=== PATIENT | female | born 1950 | race Caucasian/White ===

== ENCOUNTER 2021-04-12 17:35 | Observation (INO) ==
[2021-04-12 18:17] LABS: BILIRUBIN,URINE Negative (NEGATIVE); CLARITY,URINE Cloudy (CLEAR); COLOR,URINE Yellow (YELLOW); GLUCOSE, URINE (UA) Negative (NEGATIVE); KETONES,URINE Trace (NEGATIVE); LEUKOCYTE ESTERASE ,URINE 3+ (NEGATIVE); NITRITE,URINE Negative (NEGATIVE); PROTEIN,URINE 2+ (NEGATIVE); URINE, BLOOD 1+ (NEGATIVE); UROBILINOGEN,URINE 0.2 (0.2)
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
[2021-04-12 18:28] LABS: AMPHETAMINE SCREEN,URINE POSITIVE (NEGATIVE); BARBITURATE SCREEN,URINE NEGATIVE (NEGATIVE); BENZODIAZEPINES SCREEN,URINE POSITIVE (NEGATIVE); CANNABINOID SCREEN,URINE NEGATIVE (NEGATIVE); COCAIN SCREEN,URINE NEGATIVE (NEGATIVE); METHADONE URINE SCREEN NEGATIVE (NEGATIVE); METHAMPHETAMINES SCREEN,URINE NEGATIVE (NEGATIVE); OPIATE SCREEN,URINE NEGATIVE (NEGATIVE); OXYCODONE URINE SCREEN NEGATIVE (NEGATIVE); PHENCYCLIDINE SCREEN,URINE NEGATIVE (NEGATIVE); PROPOXYPHENE URINE SCREEN NEGATIVE (NEGATIVE); TRICYCLIC ANTIDEPRESSANTS URIN NEGATIVE (NEGATIVE)
[2021-04-12 18:35] LABS: BACTERIA,URINE 4+ (NOT PRESENT); RENAL EPITHELIAL CELLS,URINE 0-2 (NOT PRESENT); TRANSITIONAL EPI CELLS,URINE 0-2 (NOT PRESENT); URINE RBC, MICROSCOPIC 0-2 (0-2); URINE WBC, MICROSCOPIC TNTC (0-2)
[2021-04-12 19:03] LABS: BASOPHILS # (AUTO) 0.1 K/uL (0-0.2); BASOPHILS % (AUTO) 0.6 % (0.0-3.0); EOSINOPHILS # (AUTO) 0.2 K/ul (0.0-0.7); EOSINOPHILS % (AUTO) 1.8 % (0.0-7.0); HEMOGLOBIN 13.6 g/dl (12.0-16.0); IMMATURE GRANULOCYTE # (AUTO) 0.1 (0.0-1.0); IMMATURE GRANULOCYTE % (AUTO) 0.4 % (0.0-5.0); LYMPHOCYTES # (AUTO) 3.6 K/uL (0.60-3.4); LYMPHOCYTES % (AUTO) 28.7 (10.0-50.0); MEAN CORPUSCULAR HEMOGLOBIN 30.1 pg (27.0-31.0); MEAN CORPUSCULAR HGB CONC 34.9 (31.8-35.4); MEAN CORPUSCULAR VOLUME 86.3 fl (81.0-99.0); MONOCYTES # (AUTO) 1.2 K/uL (0.4-2.0); MONOCYTES % (AUTO) 9.5 (0-10); NEUTROPHILS # (AUTO) 7.4 K/ul (2.0-6.9); PLATELET COUNT 275 10^3/uL (140-440); RDW COEFFICIENT OF VARIATION 13.1 % (11.6-14.8); RED BLOOD COUNT 4.52 10^6/ul (4.20-5.40); WHITE BLOOD COUNT 12.53 K/ul (4.6-10.2)
[2021-04-12 19:16] LABS: ALANINE AMINOTRANSFERASE 36.7 U/L (0-35); ALBUMIN 4.2 g/dL (3.5-5.0); ALKALINE PHOSPHATASE 112.6 U/L (53-141); ASPARTATE AMINO TRANSFERASE 36.3 U/L (14-36); BILIRUBIN,TOTAL 0.43 mg/dL (0.2-1.3); BLOOD UREA NITROGEN 54.6 mg/dL (7-17); CALCIUM 9.74 mg/dL (8.4-10.2); CARBON DIOXIDE 27.9 mmol/L (22-30.0); CHLORIDE 94.6 mmol/L (98-107); CREATININE 2.77 mg/dL (0.60-1.30); GLUCOSE 107.8 mg/dL (74-106); SODIUM 131.9 mmol/L (134.5-145); TOTAL PROTEIN 6.72 g/dL (6.3-8.2)
[2021-04-12 19:17] LABS: POTASSIUM 2.66 mmol/L (3.5-5.1)
--- NOTE | 2021-04-12 19:17 | CT ---
EXAM: CT BRAIN HISTORY: Head trauma TECHNIQUE: CT brain without intravenous contrast. 5-mm axial sections with Reformations. COMPARISON: 07/23/2014 FINDINGS: There is a ventriculostomy tube entering from the anterior right aspect to end in the anterior horn o f the right lateral ventricle. Mild ventriculomegaly is stable. There is generalized atrophy and ch ronic microvascular ischemic disease. No intracranial hemorrhage or subdural hematoma. There is no evidence of recent large vessel distribution ischemic infarction, mass or midline shift. Basal ciste rns are patent. Atherosclerosis is noted. There is no skull fracture. Mastoid process air cells ar e aerated and the visualized paranasal sinuses are clear. IMPRESSION: No acute intracranial process or injury. No skull fracture. - - - - - All CT scans are performed using dose optimization techniques as appropriate to the performed exam an d include at least one of the following: Automated exposure control, adjustment of the mA and/or kV according t o size, and the use of iterative reconstruction technique.
--- NOTE | 2021-04-12 19:23 | CT ---
EXAM: CT cervical spine. HISTORY: Fall. TECHNIQUE: CT cervical spine without contrast. Detailed axial sections. Coronal and sagittal re-fo rmations. COMPARISON: None FINDINGS: Bones are demineralized. No fracture is identified. Vertebral body heights are maintained. Facet j oints are covered. The lateral masses of C1 and C2 are normally aligned and the odontoid process is intact. No scoliosis. Diffuse degenerative disc and facet disease becomes moderately severe at the mid to lower spine most apparent at C5/C6 where there is central canal stenosis and mild bilateral ne ural foraminal narrowing. There is subtle reversal of lordosis centered at C5. There is no paraspin al fluid collection or hematoma. Incidental findings include atherosclerotic disease. IMPRESSION: 1. Diffuse degenerative changes of the spine. No acute fracture identified - - - - - All CT scans are performed using dose optimization techniques as appropriate to the performed exam an d include at least one of the following: Automated exposure control, adjustment of the mA and/or kV according t o size, and the use of iterative reconstruction technique.
--- NOTE | 2021-04-12 19:27 | CT ---
EXAM: CT FACIAL BONES HISTORY: Fall. TECHNIQUE: CT facial bones without contrast. 3-mm axial sections. Coronal and sagital reformations . FINDINGS: No acute fracture is seen. The orbits are intact. Intraorbital structures are preserved. No mandib ular fracture. Temporal mandibular joints are intact. Paranasal sinuses are clear and the mastoid p rocess air cells aerated. IMPRESSION: No fractures identified. - - - - - All CT scans are performed using dose optimization techniques as appropriate to the performed exam an d include at least one of the following: Automated exposure control, adjustment of the mA and/or kV according t o size, and the use of iterative reconstruction technique.
[2021-04-12] MEDS ORDERED: SODIUM CHLORIDE 0.9%-KCL 40MEQ 1,000 ML IV STA (19:32)
[2021-04-12] MEDS ORDERED: TYLENOL PO PRN (19:37)
[2021-04-12] MEDS ORDERED: KLONOPIN PO PRN (19:39)
[2021-04-12] MEDS ORDERED: DEXTROSE IV ONE (19:59)
[2021-04-12] MEDS ORDERED: CIPROFLOXACIN 200 MG/100 ML IV ONE (19:59)
[2021-04-12] MEDS: CIPROFLOXACIN 200 MG/100 ML IV SCH (20:01)
[2021-04-12] MEDS: DEXTROSE IV SCH (20:01)
[2021-04-12 20:27] LABS: MOLECULAR FLU A NEGATIVE BY NAAT (NEGATIVE); MOLECULAR FLU B NEGATIVE BY NAAT (NEGATIVE)
--- NOTE | 2021-04-12 20:46 | DI ---
EXAM: Chest, single view HISTORY: Mental status changes COMPARISON: 08/11/2015 FINDINGS / IMPRESSION: Cardiomediastinal countours appear stable. Catheter tubing traverses the rig ht chest. There is no focal pulmonary consolidation. No pleural effusion or pneumothorax. No acute cardiopulmonary process.
[2021-04-12] MEDS ORDERED: DEXTROAMPHETAMINE AMPHETAMINE 20 MG PO SCH (21:00)
[2021-04-12 22:12] VITALS: BMI 26.6
[2021-04-13 05:36] LABS: BASOPHILS # (AUTO) 0.1 K/uL (0-0.2); BASOPHILS % (AUTO) 0.7 % (0.0-3.0); EOSINOPHILS # (AUTO) 0.3 K/ul (0.0-0.7); EOSINOPHILS % (AUTO) 2.7 % (0.0-7.0); HEMATOCRIT 35.8 % (37.0-47.0); HEMOGLOBIN 12.4 g/dl (12.0-16.0); IMMATURE GRANULOCYTE % (AUTO) 0.4 % (0.0-5.0); LYMPHOCYTES # (AUTO) 2.5 K/uL (0.60-3.4); LYMPHOCYTES % (AUTO) 25.6 (10.0-50.0); MEAN CORPUSCULAR HEMOGLOBIN 30.2 pg (27.0-31.0); MEAN CORPUSCULAR HGB CONC 34.6 (31.8-35.4); MEAN CORPUSCULAR VOLUME 87.1 fl (81.0-99.0); MONOCYTES # (AUTO) 0.8 K/uL (0.4-2.0); MONOCYTES % (AUTO) 8.2 (0-10); NEUTROPHILS # (AUTO) 6.2 K/ul (2.0-6.9); NEUTROPHILS % (AUTO) 62.4 % (42.2-75.2); PLATELET COUNT 226 10^3/uL (140-440); RDW COEFFICIENT OF VARIATION 13.2 % (11.6-14.8); RED BLOOD COUNT 4.11 10^6/ul (4.20-5.40); WHITE BLOOD COUNT 9.87 K/ul (4.6-10.2)
[2021-04-13 05:49] LABS: ALANINE AMINOTRANSFERASE 31.4 U/L (0-35); ALBUMIN 3.72 g/dL (3.5-5.0); ALKALINE PHOSPHATASE 94.4 U/L (53-141); ASPARTATE AMINO TRANSFERASE 30.3 U/L (14-36); BILIRUBIN,TOTAL 0.39 mg/dL (0.2-1.3); BLOOD UREA NITROGEN 54.3 mg/dL (7-17); CALCIUM 9.39 mg/dL (8.4-10.2); CARBON DIOXIDE 24.7 mmol/L (22-30.0); CHLORIDE 102.6 mmol/L (98-107); CREATININE 1.85 mg/dL (0.60-1.30); GLUCOSE 103.2 mg/dL (74-106); POTASSIUM 2.89 mmol/L (3.5-5.1); SODIUM 135.9 mmol/L (134.5-145); TOTAL PROTEIN 6.13 g/dL (6.3-8.2)
[2021-04-13] MEDS ORDERED: ZOFRAN 4 MG/2 ML IVP STA (06:29)
[2021-04-13] MEDS ORDERED: K-DUR PO STA (06:29)
[2021-04-13] MEDS: CIPROFLOXACIN 200 MG/100 ML IV SCH (08:48)
[2021-04-13] MEDS: DEXTROSE IV SCH (08:48)
[2021-04-13] MEDS ORDERED: TOPROL XL PO SCH (09:00)
[2021-04-13] MEDS ORDERED: BUPROPION HCL 100 MG PO SCH (09:00)
[2021-04-13] MEDS ORDERED: DIOVAN PO SCH (09:00)
[2021-04-13] MEDS ORDERED: LIPITOR PO SCH ×2 (09:00→10:30)
[2021-04-13] MEDS ORDERED: ADDERALL PO SCH (09:00)
[2021-04-13] MEDS ORDERED: DORZOLAMIDE TIMOLOL OP SCH (09:45)
[2021-04-13] MEDS ORDERED: LEXAPRO PO SCH (10:00)
[2021-04-13] MEDS ORDERED: BRIMONIDINE TARTRATE 0.2% OPTH SOL EACHEYE SCH ×3 (10:00→10:30)
[2021-04-13] MEDS ORDERED: XALATAN EACHEYE SCH (10:00)
[2021-04-13 10:01] LABS: BLOOD UREA NITROGEN 48.5 mg/dL (7-17); CALCIUM 9.7 mg/dL (8.4-10.2); CARBON DIOXIDE 25.7 mmol/L (22-30.0); CHLORIDE 102.1 mmol/L (98-107); CREATININE 1.67 mg/dL (0.60-1.30); GLUCOSE 93.4 mg/dL (74-106); POTASSIUM 3.33 mmol/L (3.5-5.1)
[2021-04-13] MEDS ORDERED: COSOPT EACHEYE SCH ×2 (10:30)
[2021-04-13] MEDS ORDERED: PRILOSEC PO SCH (10:30)
[2021-04-13] MEDS ORDERED: DEXTROSE IV ONE (11:00)
[2021-04-13] MEDS ORDERED: CIPROFLOXACIN 200 MG/100 ML IV ONE (11:00)
[2021-04-13] MEDS ORDERED: INFUVITE ADULT IV SCH (13:00)
[2021-04-13] MEDS ORDERED: POTASSIUM CHLORIDE IV SCH (13:00)
[2021-04-13] MEDS ORDERED: ADDITIVE ONLY IV SCH (13:00)
[2021-04-13] MEDS ORDERED: [UNRECOGNIZED DRUG - OTHER] IV SCH (13:00)
[2021-04-13 14:13] VITALS: BP 160/68; TEMP 97.8
--- NOTE | 2021-04-13 14:55 | RS.SLPCNOT ---
Speech Case Note Date of Note: 04/13/21 Title: Speech Consult Note: [employer]ACLE SO[employer] DEVELOPER was consulted regarding pt's AMS and cognitive change. [employer]LE SO[employer] DEVELOPER reviewed chart and RN had documented pt was angry and wanted to leave building. OR[employer]LE [employer] DEVELOPER verbally discussed with MD potential for participation with cognitive assessment and pt's current state of mind. MD suggested OR[employer]LE [employer] DEVELOPER hold cognitive assessment as pt's cooperation was limited. OR[employer]LE SO[employer] DEVELOPER agreed with MD's recommendations. No formal cognitive evaluation, assessment or screen was completed this date.
[2021-04-13] MEDS ORDERED: DESYREL PO PRN (21:00)
[2021-04-13] MEDS ORDERED: CIPROFLOXACIN 200 MG/100 ML IV SCH (21:00)
[2021-04-13] MEDS ORDERED: CIPRO 400 MG/200 ML D5W 400 MG/200 ML BAG IV SCH (21:00)
[2021-04-13] MEDS ORDERED: DEXTROSE IV SCH (21:00)
[2021-04-14] MEDS ORDERED: LIPITOR PO SCH (09:00)
[2021-04-14] MEDS ORDERED: TOPROL XL PO SCH ×2 (09:00)
[2021-04-14] MEDS ORDERED: ADDERALL PO SCH (09:00)
--- NOTE | 2021-04-14 11:15 | SSS ---
DATE OF SERVICE: 04/12/21 CHIEF COMPLAINT: Neck pain after a fall on ice. SOURCE OF HISTORY: The patient and notes from the emergency room doctor. Reliability unsure about. HISTORY OF PRESENT ILLNESS: The patient claimed that yesterday she fell and slid on ice and landed on her forehead. She went to the emergency room with her daughter but left without being seen since they had waited for a long time. She did not specified as to how many hours they were there without being seen. She was picked up by Mike from [facility] and I saw her at 1 before going to the emergency room and was complaining of neck pain. I did advise her to go to the emergency room because of the pain as well as the injury which was evaluated in [place]. She was brought to [place] [facility] and a workup was performed and Dr. Carver was advised about the patient in the emergency room by Dr. Carver refused her admission to his services since he had seen her for more than [address] Jasso, the emergency room doctor at that time. He soon talked to me with her and I did informed Dr. Jasso that she can admit her to my services in the mean time. This patient was constantly telling me her ride on the airplane was terrible. Asked her whether it was because of the weather and she did not answer that. The patient was found to have prerenal azotemia or NIVIA with an EGFR of 19. The patient was subsequently admitted for treatment of the urinary tract infection as well as the dehydration-prerenal azotemia or NIVIA. PAST MEDICAL HISTORY/PAST SURGICAL HISTORY: The patient had tubal ligation Hysterectomy Ventricular peritoneal shunt probably from hydrocephalus History of hypertension Chest pain in the past ADD MEDICATIONS: Lipitor 40mg daily Brimonidine 0.2% one drop every 12 hours both eyes. Dextroamphetamine 20mg twice a day (Adderall) Dorzolamide (Timolol) one drop both eyes every 12 hours Lexapro 10mg daily Latanoprost 0.005% 150mg at HS PRN Ascorbic acid 500mg daily discontinued Ibuprofen Hydrochloride 150mg daily discontinued Vitamin D 3 400 international units discontinued Clonazepam 0.5mg twice a day discontinued Colchicine discontinued Fluticasone 50mcg per actuation discontinued Losartan Hydrochloride 100mg/25mg discontinued Pantoprazole 20mg daily discontinued Tretinoin 0.025% topical application discontinued Valsartan 320mg daily discontinued The discontinued medications are medications that had not been filled at the pharmacy. The medications that the pharmacist had filled were done 03/22/21. ALLERGIES: Penicillins Sulfa REVIEW OF SYSTEMS: CONSTITUTIONAL: The patient claims to have weakness. No fever and chills. She also claimed to have lost some 32 pounds. Did ask her this morning and she claimed that she gained it back. HEENT: This patient has Glaucoma, on medication. No symptoms otherwise. Nose and Throat negative. CARDIOVASCULAR: Denies any chest pain or shortness of breath or tightness in the chest. RESPIRATORY: No dyspnea or tachypnea or other problems. GASTROINTESTINAL: No nausea and no anorexia with good appetite. GENITOURINARY: Denies any pain on urination. MUSCULOSKELETAL: The patient is complaining of pain in the neck NEUROLOGIC: Reports forgetfulness. Gait is not steady but maybe from the generalized weakness. SKIN: The patient does complain of laceration on the right forehead from the fall yesterday. ENDOCRINE: Negative. HEMATOLOGIC: Denies any spontaneous bleeding or any bleeding without any reason. PHYSICAL EXAMINATION: GENERAL: 70 year old female , alert but rambling. The patient seems to be repeatedly saying that no body is helping her. She also mentioned about the rough ride on the airplane from [place] to [place]. Workup done at the emergency room showed no acute fractures of the skull or cervical spine. She was noted to have dehydration with elevated BUN, elevated creatinine and low EGFR. EGFR of this patient back in 2016 was 75. She has movement of all extremities. She does have a laceration on the right forehead slightly gapping. VITAL SIGNS: Temperature 97.8, blood pressure 113/71, pulse 74, respiratory rate 18 and oxygen saturation 98% at room air. HEAD: Unremarkable. FACE: Symmetrical and equal with no facial weakness. Slightly gapping laceration to right forehead slanted direction about an inch or slightly longer. There are steri strips applied. EYES: Pupils are about 3mm in size equal and reactive. EAR: No external bloody drainage. NECK: No masses and bruit. No rigidity. The patient complains of some soreness in the neck. CHEST: Symmetrical and equal. This patient had a previous breast augmentation that was removed. BREAST: No examined today HEART: Audible and regular with good tones. LUNGS: Clear to auscultation in both sides. ABDOMEN: Slightly protuberant and soft with no tenderness. No masses. No bruit LOWER EXTREMITIES: No edema. Anterior and posterior tibial pulses are present in both right and left feet. Motor function is symmetrical and equal. UPPER EXTREMITIES: Symmetrical and equal with good motor function. ASSESSMENT: 1. Laceration right forehead, not sutured 2. Pain posterior neck area, no fracture by CT scan 3. Rambling speech or thoughts 4. History of hypertension 5. History of ADD 6. History of previous hospitalization diagnosis unknown to me The patient after the fall presented to the emergency room at [facility] with her daughter Lesly and they left after waiting for three hours without being seen according to Lesly. COURSE IN THE HOSPITAL: The patient's vital signs remained stable. Blood pressures have risen somewhat and at 2:00 in the afternoon 04/13/21 following vital signs are 97.8 temperature, blood pressure 160/68, pulse 78, respiratory rate 16, oxygen saturation 97% at room air. The patient had been getting up and moving around the room and also to the hallway since 7:00. She reportedly had a good breakfast. The patient was hyper and seemingly agitated and wanted to get out of the hospital. She told the nurse that it was an elderly abuse to keep her in the hospital and that I am not her doctor. Dr. Carver was contacted for admission and declined since he had seen this patient for more than 5 years. I did explain that to her that Dr. Carver declined admission to his services. All she wanted to tell me is that she wants to go home. I told her that she could not go home until her daughter will come and pick her up since no body is going to drive her to her house. The patient at the time of my examination for discharge is alert, cooperative and did recognize me and all she could tell me that she wants to go home. She appears to be agitated, anxious with some tremor movement both upper extremities. She does know where she is and also knows who her daughter is. HEAD: The laceration on the forehead has steri strips and no signs of any infection. No redness and no edema surrounding. EYES: Pupils are equal and reactive. FACE: Symmetrical and equal with no facial weakness. NECK: No pain. No significant tenderness. No bruit. The patient denies any pain now in the neck. HEART: Normal sinus rhythm LUNGS: Clear to auscultation ABDOMEN: unremarkable LOWER EXTREMITIES: Symmetrical and equal and no edema. She has good movement of both upper and lower extremities. I did inform her that she has some bladder infection that she will be given a prescription. There is some side effects of this medication, some are very rare but very significant such as a vascular complication, rupture of blood vessel. She should drink plenty of liquids via water any form of liquids but no alcohol. Her kidneys had improved since admission yesterday. She is allergic to Penicillin and Sulfa and so she was given Cipro as an alternative. At this time we do not have the identification or the ESTEBAN of the urine abnormalities. She is to resume all her previous medications that she had from [place] plus the medication that is being prescribed today, Cipro 500mg #10 one twice a day with no refills. She as well as the daughter is advised that she should see a doctor as soon as possible. If she would have any problems that she should seek medical attention. I had to Lesly, her daughter, who is picking her up. ASSESSMENT: 1. Right forehead laceration, not sutured secondary to fall on ice 2. Neck pain resolved 3. Rambling thoughts (confusion) 4. History of ADD 5. History of hydrocephalus treated with a shunt 6. History of Glaucoma on medication 7. History of hypertension, controlled PROGNOSIS: Guarded MTDD
== END 2021-04-13 15:40 | disposition other institution (70) ==
LOC: ED 17:35 → INTOOBSV 21:04 → MEDSURG A 21:04
PROVIDERS: ADMIT General Practice; ATTEND General Practice
DX: Z91.81 History of falling; N39.0 Urinary tract infection, site not specified; E86.0 Dehydration; R51.9 Headache, unspecified; S09.90XA Unspecified injury of head, initial encounter; Y99.9 Unspecified external cause status; S01.81XA Laceration without foreign body of other part of head, initial encounter; E87.6 Hypokalemia; M54.2 Cervicalgia; Z79.899 Other long term (current) drug therapy; Y92.9 Unspecified place or not applicable; R53.1 Weakness; R41.82 Altered mental status, unspecified; Y93.9 Activity, unspecified; W00.9XXA Unspecified fall due to ice and snow, initial encounter; N17.9 Acute kidney failure, unspecified; N18.4 Chronic kidney disease, stage 4 (severe)

== ENCOUNTER 2021-10-08 18:05 | Inpatient (IN) ==
--- NOTE | 2021-10-08 18:33 | ED.PDOC ---
General ED Provider: Dr. JUAN CERVANTES Chief Complaint: Behavioral Complaint Stated Complaint: im here to meet mental health Time Seen by Provider: 10/08/21 18:28 Mode of Arrival: Walk-In Information Source: Patient Exam Limitations: No limitations Primary Care Provider: UNKNOWN PROVIDER Nursing and Triage Documentation Reviewed and Agree: Yes Does patient meet sepsis criteria?: No System Inflammatory Response Syndrome: Not Applicable Sepsis Protocol: For patient's 13 years and over: Temp is 96.8 and below OR 101 and greater Pulse >90 BPM Resp >20/minute Acutely Altered Mental Status Are patient's symptoms suggestive of a new infection, such as: -Pneumonia -Skin, Soft Tissue -Endocarditis -UTI -Bone, Joint Infection -Implantable Device -Acute Abdominal Infection -Wound Infection -Meningitis -Blood Stream Catheter Infection -Unknown Psychological Complaint Exam Psychiatric Complaint/Exam Patient Complains Of: Present Depression Onset/Duration: several weeks Symptoms Are: Still present Timing: Constant Initial Severity: Mild Current Severity: Mild Character: Present Manic, Fearful and Anxious Associated Signs And Symptoms: Reports Paranoid behavior Completed Suicide Risk Factors: Age > 60 and Patient In Custody Of Police: No Social Withdrawal Present: No Social Isolation Present: Yes Related Surgical History: Reports None Patient Uncooperative For Exam: No Mood: Present Paranoid Appearance: Present Clean Thought Process: Present Flight of ideas Insight: Present Poor Memory: Intact Judgement: Impaired Danger To Others: No Patient Medically Stable For: Psych evaluation, Referral and Transfer Differential Diagnoses: Bipolar Disorder and Acute Psychosis Review of Systems Review Of Systems Constitutional: Reports No symptoms Eyes: Reports No symptoms Ears, Nose, Mouth, Throat: Reports No symptoms Respiratory: Reports No symptoms Cardiac: Reports No symptoms GI: Reports No symptoms : Reports No symptoms Musculoskeletal: Reports No symptoms Skin: Reports No symptoms Neurological: Reports No symptoms Endocrine: Reports No symptoms Hematologic/Lymphatic: Reports No symptoms All Other Systems: Reviewed and Negative PFSH Medical History ADD (attention deficit disorder) Glaucoma Hydrocephalus Family History FATHER Suicide Mother Hodgkin disease Social History History of recent travel: No Surgical History H/O tubal ligation History of abdominoplasty Hx of cholecystectomy Ventriculo-peritoneal shunt status Female Reproductive History Menstrual Hx Hysterectomy: No Hx Tubal Ligation: No Physical Exam Physical Exam Appearance: Reports Well-appearing Ill-appearing: None Pain Distress: None Eyes: Reports RIVKA, EOMI and Conjunctiva clear ENT: Reports Ears normal, Nose normal and Oropharynx normal Neck: Supple Respiratory: Reports Airway patent and Breath sounds clear Cardiovascular: Reports RRR, Pulses normal and No rub GI/: Reports Soft, Nontender and No masses Musculoskeletal: Reports Normal strength, ROM intact and No edema Skin: Reports Warm, Dry and Normal color Neurological: Reports Sensation intact, Motor intact, Reflexes intact, Cranial nerves intact, Alert and Oriented Psychiatric: Reports Affect appropriate and Mood appropriate Interpretation EKG Interpretation Time of EKG #1: 19:54 Rate: Normal Rhythm: Sinus Ectopy: None [place]: NL ST Segment: Normal Interpretation: nsr Physician Notification Case Discussed Physician Notified: dr delvalle Time of Notification: 19:00 Critical Care Note Critical Care Note Total Critical Care Time (mins): 0 Course Course Hematology/Chemistry: 10/08/21 18:32 10/08/21 18:32 Orders, Labs, Meds: Lab Review 10/08/21 10/08/21 10/08/21 18:32 18:32 18:32 WBC 12.43 H RBC 4.69 Hgb 13.9 Hct 39.6 MCV 84.4 MCH 29.6 MCHC 35.1 RDW Coeff of Jose 12.8 Plt Count 273 Immature Gran % (Auto) 0.3 Neut % (Auto) 69.6 Lymph % (Auto) 19.1 [place] % (Auto) 10.0 Eos % (Auto) 0.6 Baso % (Auto) 0.4 Neut # (Auto) 8.7 H Lymph # (Auto) 2.4 [place] # (Auto) 1.2 Eos # (Auto) 0.1 Baso # (Auto) 0.1 Immature Gran # (Auto) 0.0 Sodium 134.6 Potassium 1.93 L* Chloride 98.4 Carbon Dioxide 22.6 Anion Gap 15.53 BUN 15.2 Creatinine 0.95 Estimated GFR (MDRD) 58.00 BUN/Creatinine Ratio 16.00 Glucose 124.2 H Calcium 9.86 Magnesium 1.90 Total Bilirubin 0.46 AST 35.3 ALT 30.7 Alkaline Phosphatase 117.1 Total Protein 7.02 Albumin 4.17 Globulin 2.85 Albumin/Globulin Ratio 1.46 Urine Color Urine Clarity Urine pH Ur Specific [place] Urine Protein Urine Glucose (UA) Urine Ketones Urine Blood Urine Nitrite Urine Bilirubin Urine Urobilinogen Ur Leukocyte Esterase Urine Microscopic RBC Urine Microscopic WBC Ur Squamous Epith Cells Urine Bacteria Salicylate Level mg/dL < 1.00 Urine Opiates Screen Ur Oxycodone Screen Urine Methadone Screen Ur Propoxyphene Screen Acetaminophen < 10.0 L Ur Barbiturates Screen U Tricyclic Antidepress Ur Phencyclidine Scrn Ur Amphetamine Screen U Methamphetamines Scrn U Benzodiazepines Scrn Urine Cocaine Screen U Cannabinoids Screen Plasma/Serum Alcohol < 10.0 10/08/21 10/08/21 19:00 19:00 WBC RBC Hgb Hct MCV MCH MCHC RDW Coeff of Jose Plt Count Immature Gran % (Auto) Neut % (Auto) Lymph % (Auto) [place] % (Auto) Eos % (Auto) Baso % (Auto) Neut # (Auto) Lymph # (Auto) [place] # (Auto) Eos # (Auto) Baso # (Auto) Immature Gran # (Auto) Sodium Potassium Chloride Carbon Dioxide Anion Gap BUN Creatinine Estimated GFR (MDRD) BUN/Creatinine Ratio Glucose Calcium Magnesium Total Bilirubin AST ALT Alkaline Phosphatase Total Protein Albumin Globulin Albumin/Globulin Ratio Urine Color Yellow Urine Clarity Clear Urine pH 7.0 Ur Specific [place] 1.015 Urine Protein Negative Urine Glucose (UA) Negative Urine Ketones Negative Urine Blood Negative Urine Nitrite Negative Urine Bilirubin Negative Urine Urobilinogen 0.2 Ur Leukocyte Esterase 1+ H Urine Microscopic RBC 0-2 Urine Microscopic WBC 10-20 Ur Squamous Epith Cells 2-5 Urine Bacteria Trace Salicylate Level mg/dL Urine Opiates Screen Negative Ur Oxycodone Screen Negative Urine Methadone Screen Negative Ur Propoxyphene Screen Negative Acetaminophen Ur Barbiturates Screen Negative U Tricyclic Antidepress Negative Ur Phencyclidine Scrn Negative Ur Amphetamine Screen Negative U Methamphetamines Scrn Negative U Benzodiazepines Scrn Negative Urine Cocaine Screen Negative U Cannabinoids Screen Negative Plasma/Serum Alcohol Orders Category Date Time Status EKG-(ED ONLY) Stat CARDIO 10/08/21 18:20 Completed ED IV/MEDIPORT/POWERPORT .ONCE EMERGENCY 10/08/21 19:02 Active Mental Health Consult [ED MENTAL HEALTH CONSULT] .ONCE EMERGENCY 10/08/21 18:23 Active ASPIRIN LEVEL [SALICYLATE] Stat LAB 10/08/21 18:32 Completed CBC W/ AUTO DIFF Stat LAB 10/08/21 18:32 Completed COMPREHENSIVE METABOLIC PANEL Stat LAB 10/08/21 18:32 Completed ETOH LEVEL [BLOOD ALCOHOL] Stat LAB 10/08/21 18:32 Completed MAGNESIUM Stat LAB 10/08/21 18:32 Completed TYLENOL LEVEL [ACETAMINOPHEN] Stat LAB 10/08/21 18:32 Completed URINALYSIS C & S IF INDICATED Stat LAB 10/08/21 19:00 Completed URINE CULTURE Stat LAB 10/08/21 19:00 Received URINE DRUG SCREEN (RAPID FOR ED) [DRUG SCREEN, URINE, LAB 10/08/21 19:00 Completed RAPID] Stat 0.9 % Sodium Chloride [Saline Flush] MEDS 10/08/21 19:02 Active 1 syr IVF PRN PRN Lorazepam [Ativan] MEDS 10/08/21 18:49 Discontinued 1 mg IVP ONCE STA Potassium Chloride [Potassium Chloride 10 Meq/100 ml MEDS 10/08/21 19:02 Discontinued Premix] 10 meq in 100 ml IV ONCE Potassium Chloride [Potassium Chloride 10 Meq/100 ml MEDS 10/08/21 19:02 Discontinued Premix] 10 meq in 100 ml IV ONCE Potassium Chloride [Potassium Chloride 10 Meq/100 ml MEDS 10/08/21 19:02 Discontinued Premix] 10 meq in 100 ml IV ONCE Medications Generic Name Dose Route Start Last Admin Trade Name Freq PRN Reason Stop Dose Admin Sodium Chloride 1 syr 10/08/21 19:02 0.9% Sodium Chloride 10 Ml Disp.Syrin IVF PRN PRN To flush IV Discontinued Medications Generic Name Dose Route Start Last Admin Trade Name Freq PRN Reason Stop Dose Admin Potassium Chloride 10 meq in 100 mls @ 100 mls/hr 10/08/21 19:02 10/08/21 19:12 Potassium Chloride 10 Meq/100 Ml Premix IV 10/08/21 20:01 100 mls/hr ONCE STA Administration Potassium Chloride 10 meq in 100 mls @ 100 mls/hr 10/08/21 19:02 10/08/21 20:45 Potassium Chloride 10 Meq/100 Ml Premix IV 10/08/21 20:01 100 mls/hr ONCE STA Administration Potassium Chloride 10 meq in 100 mls @ 100 mls/hr 10/08/21 19:02 Potassium Chloride 10 Meq/100 Ml Premix IV 10/08/21 20:01 ONCE STA Lorazepam 1 mg 10/08/21 18:49 10/08/21 19:12 Lorazepam Inj 2 Mg/Ml Vial IVP 10/08/21 18:50 1 mg ONCE STA Administration Vital Signs: Temp Pulse Resp BP Pulse Ox 10/08/21 18:06 97.5 F L 85 18 141/40 H 96 Discharge Plan Discharge Patient Disposition: PLACED OBSERVATION Discharge Problem: Acute hypokalemia Prescriptions: No Action metoprolol succinate 100 MG tablet extended release 24 hr 12.5 mg PO DAILY atorvastatin [Lipitor] 10 MG tablet 40 tab PO DAILY latanoprost [Xalatan] 0.005 % Drops 1 drp BOTHEYES DAILY trazodone 50 mg Tablet 50 - 150 mg PO QHS PRN (Reason: Insomnia) brimonidine [Alphagan] 0.2 % Drops 1 drp BOTHEYES Q12H dorzolamide-timolol [Cosopt] 22.3-6.8 mg/mL Drops 1 drp BOTHEYES Q12H escitalopram oxalate [Lexapro] 10 mg Tablet 10 mg PO DAILY brimonidine 0.2 % Drops 1 drp BOTHEYES Q8H omeprazole 20 mg Tablet,Delayed Release (Dr/Ec) 20 mg PO DAILY potassium chloride 10 mEq capsule, extended release 10 meq PO DAILY Qty: 7 0RF ziprasidone HCl [Geodon] 20 mg capsule 20 mg PO BID MDD 2 Qty: 20 2RF Rx Instructions: give with food (meal/snack) dextroamphetamine-amphetamine [Adderall] 20 MG tablet 10 mg PO BID Did you review [place] CASTING CARRIER?: Not Applicable ED Provider: JUAN DELEON Condition: Good Physician Progress Note: []
[2021-10-08 18:36] LABS: BASOPHILS # (AUTO) 0.1 K/uL (0-0.2); BASOPHILS % (AUTO) 0.4 % (0.0-3.0); EOSINOPHILS # (AUTO) 0.1 K/ul (0.0-0.7); EOSINOPHILS % (AUTO) 0.6 % (0.0-7.0); HEMATOCRIT 39.6 % (37.0-47.0); HEMOGLOBIN 13.9 g/dl (12.0-16.0); IMMATURE GRANULOCYTE % (AUTO) 0.3 % (0.0-5.0); LYMPHOCYTES # (AUTO) 2.4 K/uL (0.60-3.4); LYMPHOCYTES % (AUTO) 19.1 (10.0-50.0); MEAN CORPUSCULAR HEMOGLOBIN 29.6 pg (27.0-31.0); MEAN CORPUSCULAR HGB CONC 35.1 (31.8-35.4); MEAN CORPUSCULAR VOLUME 84.4 fl (81.0-99.0); MONOCYTES # (AUTO) 1.2 K/uL (0.4-2.0); NEUTROPHILS # (AUTO) 8.7 K/ul (2.0-6.9); NEUTROPHILS % (AUTO) 69.6 % (42.2-75.2); PLATELET COUNT 273 10^3/uL (140-440); RDW COEFFICIENT OF VARIATION 12.8 % (11.6-14.8); RED BLOOD COUNT 4.69 10^6/ul (4.20-5.40); WHITE BLOOD COUNT 12.43 K/ul (4.6-10.2)
[2021-10-08] MEDS ORDERED: ATIVAN IVP STA (18:49)
[2021-10-08 18:57] LABS: ACETAMINOPHEN < 10.0 ug/ml (10-30); BLOOD ALCOHOL < 10.0 mg/dL (0.0-50.0); SALICYLATE < 1.00 mg/dL (0-20.0)
[2021-10-08 18:58] LABS: ALANINE AMINOTRANSFERASE 30.7 U/L (0-35); ALBUMIN 4.17 g/dL (3.5-5.0); ALKALINE PHOSPHATASE 117.1 U/L (53-141); ASPARTATE AMINO TRANSFERASE 35.3 U/L (14-36); BILIRUBIN,TOTAL 0.46 mg/dL (0.2-1.3); BLOOD UREA NITROGEN 15.2 mg/dL (7-17); CALCIUM 9.86 mg/dL (8.4-10.2); CARBON DIOXIDE 22.6 mmol/L (22-30.0); CHLORIDE 98.4 mmol/L (98-107); CREATININE 0.95 mg/dL (0.60-1.30); GLUCOSE 124.2 mg/dL (74-106); SODIUM 134.6 mmol/L (134.5-145); TOTAL PROTEIN 7.02 g/dL (6.3-8.2)
[2021-10-08 19:01] LABS: POTASSIUM 1.93 mmol/L (3.5-5.1)
[2021-10-08] MEDS ORDERED: POTASSIUM CHLORIDE 10 MEQ/100 ML PREMIX 10 MEQ/100 ML BAG IV STA ×5 (19:02→20:51)
[2021-10-08 19:06] LABS: BILIRUBIN,URINE Negative (NEGATIVE); CLARITY,URINE Clear (CLEAR); COLOR,URINE Yellow (YELLOW); GLUCOSE, URINE (UA) Negative (NEGATIVE); KETONES,URINE Negative (NEGATIVE); LEUKOCYTE ESTERASE ,URINE 1+ (NEGATIVE); NITRITE,URINE Negative (NEGATIVE); PROTEIN,URINE Negative (NEGATIVE); URINE, BLOOD Negative (NEGATIVE); UROBILINOGEN,URINE 0.2 (0.2)
[2021-10-08 19:13] LABS: BACTERIA,URINE TRACE (NOT PRESENT); URINE RBC, MICROSCOPIC 0-2 (0-2)
[2021-10-08 19:14] LABS: AMPHETAMINE SCREEN,URINE NEGATIVE (NEGATIVE); BARBITURATE SCREEN,URINE NEGATIVE (NEGATIVE); BENZODIAZEPINES SCREEN,URINE NEGATIVE (NEGATIVE); CANNABINOID SCREEN,URINE NEGATIVE (NEGATIVE); COCAIN SCREEN,URINE NEGATIVE (NEGATIVE); METHADONE URINE SCREEN NEGATIVE (NEGATIVE); METHAMPHETAMINES SCREEN,URINE NEGATIVE (NEGATIVE); OPIATE SCREEN,URINE NEGATIVE (NEGATIVE); OXYCODONE URINE SCREEN NEGATIVE (NEGATIVE); PHENCYCLIDINE SCREEN,URINE NEGATIVE (NEGATIVE); PROPOXYPHENE URINE SCREEN NEGATIVE (NEGATIVE); TRICYCLIC ANTIDEPRESSANTS URIN NEGATIVE (NEGATIVE)
[2021-10-08 19:15] LABS: MAGNESIUM 1.9 mg/dL (1.6-2.3)
[2021-10-08 22:49] VITALS: BMI 25.6
[2021-10-09] MEDS ORDERED: POTASSIUM CHLORIDE 10 MEQ/100 ML PREMIX 10 MEQ/100 ML BAG IV ONE ×2 (00:30→01:30)
[2021-10-09] MEDS: BRIMONIDINE TARTRATE 0.2% OPTH SOL EACHEYE SCH ×3 (00:48→23:42)
[2021-10-09] MEDS: COSOPT EACHEYE SCH ×3 (00:48→23:43)
[2021-10-09 05:11] LABS: BASOPHILS % (AUTO) 0.5 % (0.0-3.0); EOSINOPHILS # (AUTO) 0.1 K/ul (0.0-0.7); EOSINOPHILS % (AUTO) 1.6 % (0.0-7.0); HEMATOCRIT 35.1 % (37.0-47.0); IMMATURE GRANULOCYTE % (AUTO) 0.4 % (0.0-5.0); LYMPHOCYTES # (AUTO) 2.3 K/uL (0.60-3.4); LYMPHOCYTES % (AUTO) 28.9 (10.0-50.0); MEAN CORPUSCULAR HEMOGLOBIN 29.6 pg (27.0-31.0); MEAN CORPUSCULAR HGB CONC 34.2 (31.8-35.4); MEAN CORPUSCULAR VOLUME 86.7 fl (81.0-99.0); MONOCYTES # (AUTO) 0.8 K/uL (0.4-2.0); NEUTROPHILS # (AUTO) 4.7 K/ul (2.0-6.9); NEUTROPHILS % (AUTO) 58.6 % (42.2-75.2); PLATELET COUNT 211 10^3/uL (140-440); RED BLOOD COUNT 4.05 10^6/ul (4.20-5.40); WHITE BLOOD COUNT 8.04 K/ul (4.6-10.2)
[2021-10-09 05:22] LABS: ALANINE AMINOTRANSFERASE 26.5 U/L (0-35); ALBUMIN 3.33 g/dL (3.5-5.0); ALKALINE PHOSPHATASE 88.9 U/L (53-141); ASPARTATE AMINO TRANSFERASE 28.7 U/L (14-36); BILIRUBIN,TOTAL 0.47 mg/dL (0.2-1.3); BLOOD UREA NITROGEN 10.7 mg/dL (7-17); CALCIUM 8.78 mg/dL (8.4-10.2); CARBON DIOXIDE 24.4 mmol/L (22-30.0); CHLORIDE 99.4 mmol/L (98-107); CREATININE 0.78 mg/dL (0.60-1.30); GLUCOSE 134.9 mg/dL (74-106); TOTAL PROTEIN 5.8 g/dL (6.3-8.2)
[2021-10-09 05:27] LABS: POTASSIUM 1.85 mmol/L (3.5-5.1)
[2021-10-09] MEDS ORDERED: POTASSIUM CHLORIDE 20 MEQ/100 ML PREMIX 20 MEQ/100 ML BAG IV STA (05:38)
[2021-10-09] MEDS: DEXTROAMPHETAMINE AMPHETAMINE 20 MG PO SCH ×2 (07:26→08:37)
[2021-10-09] MEDS ORDERED: K-DUR PO ONE ×2 (08:00→12:24)
[2021-10-09] MEDS: LEXAPRO PO SCH (08:34)
[2021-10-09] MEDS: XALATAN EACHEYE SCH (08:37)
[2021-10-09] MEDS ORDERED: GEODON PO SCH (09:00)
[2021-10-09] MEDS ORDERED: PRILOSEC PO SCH (09:00)
[2021-10-09] MEDS ORDERED: TOPROL XL PO SCH (09:00)
[2021-10-09] MEDS ORDERED: LIPITOR PO SCH (09:00)
[2021-10-09] MEDS ORDERED: ATIVAN PO ONE (09:09)
--- NOTE | 2021-10-09 11:17 | PCM.PROG ---
Date Seen by Provider: 10/09/21 Time Seen by Provider: 11:14 Subjective: pt low potassium, hx anxiety, dni, improved with ativan, denies alcoholic hx Objective: Vitals: T=97.8 F, P=72, R=16, IS=724/79, SPO2=96 HEENT: []conjunctiva clear Neck: []supple Lungs: [] no respiratory distress CVS: []RRR Abdomen: []nondistended Extremities: []warm and dry Neurological: []alert and oriented Skin: []pink Lab/Tests/Diagnostic Imaging: [] K+ 1.85 Plan: will repeat K+ after iv and oral replacement care to Dr Kwok at 19:00
[2021-10-09] MEDS ORDERED: ATIVAN IVP ONE (12:24)
--- NOTE | 2021-10-09 15:22 | PCM ---
Chief Complaint Chief Complaint: im weak History of Present Illness History of Present Illness: This is a 71 yr old lady who presented to the er with weakness and diarrhea and was to be eval by mental heatlh for issues surrounding depression and anxiety. She denies being suicidal and was cleared for outpatient tx by mental health(see consult). however she has had some nonbloody diarrhea and was found to have low potassium and admitted for iv repletion of potasssium. Review of Systems Constitutional: Reports Weakness Eyes: Reports No symptoms Ears: Reports No symptoms Nose: Reports No symptoms Throat: Reports No symptoms Mouth: Reports No symptoms Respiratory: Reports No symptoms Cardiovascular: Reports No symptoms Gastrointestinal: Reports Diarrhea Genitourinary: Reports No symptoms Neurological: Reports No symptoms Musculoskeletal: Reports No symptoms Skin: Reports No symptoms Immunology: Reports No symptoms Hematology: Reports No symptoms Endocrine: Reports No symptoms Psychiatric: Reports Depression and Anxiety Habits: Denies Tobacco use, Substance use, Alcohol use or Other Allergies Allergies Allergy/AdvReac Type Severity Reaction Status Date / Time Penicillins AdvReac Verified 05/03/21 10:14 Sulfa (Sulfonamide AdvReac Verified 05/03/21 10:14 Antibiotics) Penicillins AdvReac Uncoded 08/03/13 00:01 Sulfa (Sulfonamide AdvReac Uncoded 08/03/13 09:34 Antibiotics) [facility] Medical History ADD (attention deficit disorder) Glaucoma Hydrocephalus Surgical History H/O tubal ligation History of abdominoplasty Hx of cholecystectomy Ventriculo-peritoneal shunt status Family History FATHER Suicide Mother Hodgkin disease Social History History of recent travel: No Medications Medications: Medications Generic Name Dose Route Start Last Admin Trade Name Freq PRN Reason Stop Dose Admin Atorvastatin Calcium 40 mg 10/09/21 21:00 Atorvastatin Calcium 20 Mg Tablet PO BEDTIME DARREL Brimonidine Tartrate 1 drop 10/08/21 23:45 10/09/21 11:38 Brimonidine Tartrate 0.2% 5 Ml Btl EACHEYE 1 drop Q12H DARREL Administration Dorzolamide/Timolol 1 drop 10/09/21 00:30 10/09/21 11:39 Dorzolamide Hcl/Timolol Maleat Opth 10 Ml Lexy EACHEYE 1 drop Q12H DARREL Administration Escitalopram Oxalate 10 mg 10/09/21 09:00 10/09/21 08:34 Escitalopram Oxalate 10 Mg Tablet PO 10 mg DAILY DARREL Administration Hydrochlorothiazide 25 mg 10/10/21 09:00 Hydrochlorothiazide 25 Mg Tablet PO DAILY DARREL Latanoprost 1 drop 10/09/21 09:00 10/09/21 08:37 Latanoprost 2.5 Ml Opth Lexy EACHEYE 1 drop DAILY DARREL Administration Metoprolol Tartrate 25 mg 10/09/21 21:00 Metoprolol Tartrate 25 Mg Tablet PO BID DARREL Sodium Chloride 1 syr 10/08/21 19:02 0.9% Sodium Chloride 10 Ml Disp.Syrin IVF PRN PRN To flush IV Trazodone HCl 50 - 150 mg 10/08/21 20:53 Trazodone Hcl 50 Mg Tablet PO BEDTIME PRN Insomnia Body Composition Height: 5 ft 4 in Weight: 149 lb 1.6 oz Body Mass Index (BMI): 25.6 Vital Signs Temperature: 97.5 F Pulse Rate: 62 Respiratory Rate: 16 Blood Pressure: 127/78 O2 Sat by Pulse Oximetry: 95 Physical Examination Appearance: Reports Well-appearing Ill-appearing: None Pain Distress: None Eyes: Reports RIVKA, EOMI and Conjunctiva clear ENT: Reports Ears normal, Nose normal and Oropharynx normal Neck: Supple Respiratory: Reports Airway patent, Breath sounds clear and Breath sounds equal Cardiovascular: Reports RRR, Pulses normal, No rub and No murmur GI/: Reports Soft, Nontender, No masses, Bowel sounds normal and No Organomegaly Musculoskeletal: Reports Normal strength, ROM intact and No edema Skin: Reports Warm, Dry and Normal color Neurological: Reports Sensation intact, Motor intact, Reflexes intact, Cranial nerves intact, Alert and Oriented Psychiatric: Reports Affect appropriate, Mood appropriate, Anxious and Depressed Lab/Tests/Diagnostic Imaging Lab/Tests/Diagnostic Imaging: Lab Review 10/08/21 10/08/21 10/08/21 18:32 18:32 18:32 WBC 12.43 H RBC 4.69 Hgb 13.9 Hct 39.6 MCV 84.4 MCH 29.6 MCHC 35.1 RDW Coeff of Jose 12.8 Plt Count 273 Immature Gran % (Auto) 0.3 Neut % (Auto) 69.6 Lymph % (Auto) 19.1 [place] % (Auto) 10.0 Eos % (Auto) 0.6 Baso % (Auto) 0.4 Neut # (Auto) 8.7 H Lymph # (Auto) 2.4 [place] # (Auto) 1.2 Eos # (Auto) 0.1 Baso # (Auto) 0.1 Immature Gran # (Auto) 0.0 Sodium 134.6 Potassium 1.93 L* Chloride 98.4 Carbon Dioxide 22.6 Anion Gap 15.53 BUN 15.2 Creatinine 0.95 Estimated GFR (MDRD) 58.00 BUN/Creatinine Ratio 16.00 Glucose 124.2 H Calcium 9.86 Magnesium 1.90 Total Bilirubin 0.46 AST 35.3 ALT 30.7 Alkaline Phosphatase 117.1 Total Protein 7.02 Albumin 4.17 Globulin 2.85 Albumin/Globulin Ratio 1.46 Urine Color Urine Clarity Urine pH Ur Specific [place] Urine Protein Urine Glucose (UA) Urine Ketones Urine Blood Urine Nitrite Urine Bilirubin Urine Urobilinogen Ur Leukocyte Esterase Urine Microscopic RBC Urine Microscopic WBC Ur Squamous Epith Cells Urine Bacteria Salicylate Level mg/dL < 1.00 Urine Opiates Screen Ur Oxycodone Screen Urine Methadone Screen Ur Propoxyphene Screen Acetaminophen < 10.0 L Ur Barbiturates Screen U Tricyclic Antidepress Ur Phencyclidine Scrn Ur Amphetamine Screen U Methamphetamines Scrn U Benzodiazepines Scrn Urine Cocaine Screen U Cannabinoids Screen Plasma/Serum Alcohol < 10.0 SARS CoV-2 RNA Rapid ADONAY 10/08/21 10/08/21 10/08/21 19:00 19:00 19:57 WBC RBC Hgb Hct MCV MCH MCHC RDW Coeff of Jose Plt Count Immature Gran % (Auto) Neut % (Auto) Lymph % (Auto) [place] % (Auto) Eos % (Auto) Baso % (Auto) Neut # (Auto) Lymph # (Auto) [place] # (Auto) Eos # (Auto) Baso # (Auto) Immature Gran # (Auto) Sodium Potassium Chloride Carbon Dioxide Anion Gap BUN Creatinine Estimated GFR (MDRD) BUN/Creatinine Ratio Glucose Calcium Magnesium Total Bilirubin AST ALT Alkaline Phosphatase Total Protein Albumin Globulin Albumin/Globulin Ratio Urine Color Yellow Urine Clarity Clear Urine pH 7.0 Ur Specific [place] 1.015 Urine Protein Negative Urine Glucose (UA) Negative Urine Ketones Negative Urine Blood Negative Urine Nitrite Negative Urine Bilirubin Negative Urine Urobilinogen 0.2 Ur Leukocyte Esterase 1+ H Urine Microscopic RBC 0-2 Urine Microscopic WBC 10-20 Ur Squamous Epith Cells 2-5 Urine Bacteria Trace Salicylate Level mg/dL Urine Opiates Screen Negative Ur Oxycodone Screen Negative Urine Methadone Screen Negative Ur Propoxyphene Screen Negative Acetaminophen Ur Barbiturates Screen Negative U Tricyclic Antidepress Negative Ur Phencyclidine Scrn Negative Ur Amphetamine Screen Negative U Methamphetamines Scrn Negative U Benzodiazepines Scrn Negative Urine Cocaine Screen Negative U Cannabinoids Screen Negative Plasma/Serum Alcohol SARS CoV-2 RNA Rapid ADONAY Negative 10/08/21 10/09/21 10/09/21 21:14 04:55 04:55 WBC 8.04 RBC 4.05 L Hgb 12.0 Hct 35.1 L MCV 86.7 MCH 29.6 MCHC 34.2 RDW Coeff of Jose 13.0 Plt Count 211 Immature Gran % (Auto) 0.4 Neut % (Auto) 58.6 Lymph % (Auto) 28.9 [place] % (Auto) 10.0 Eos % (Auto) 1.6 Baso % (Auto) 0.5 Neut # (Auto) 4.7 Lymph # (Auto) 2.3 [place] # (Auto) 0.8 Eos # (Auto) 0.1 Baso # (Auto) 0.0 Immature Gran # (Auto) 0.0 Sodium 135.0 Potassium 1.85 L* Chloride 99.4 Carbon Dioxide 24.4 Anion Gap 13.05 BUN 10.7 Creatinine 0.78 Estimated GFR (MDRD) 73.00 BUN/Creatinine Ratio 13.71 Glucose 134.9 H Calcium 8.78 Magnesium 1.95 Total Bilirubin 0.47 AST 28.7 ALT 26.5 Alkaline Phosphatase 88.9 D Total Protein 5.80 L Albumin 3.33 L Globulin 2.47 Albumin/Globulin Ratio 1.34 Urine Color Urine Clarity Urine pH Ur Specific [place] Urine Protein Urine Glucose (UA) Urine Ketones Urine Blood Urine Nitrite Urine Bilirubin Urine Urobilinogen Ur Leukocyte Esterase Urine Microscopic RBC Urine Microscopic WBC Ur Squamous Epith Cells Urine Bacteria Salicylate Level mg/dL Urine Opiates Screen Ur Oxycodone Screen Urine Methadone Screen Ur Propoxyphene Screen Acetaminophen Ur Barbiturates Screen U Tricyclic Antidepress Ur Phencyclidine Scrn Ur Amphetamine Screen U Methamphetamines Scrn U Benzodiazepines Scrn Urine Cocaine Screen U Cannabinoids Screen Plasma/Serum Alcohol SARS CoV-2 RNA Rapid ADONAY 10/09/21 12:03 WBC RBC Hgb Hct MCV MCH MCHC RDW Coeff of Jose Plt Count Immature Gran % (Auto) Neut % (Auto) Lymph % (Auto) [place] % (Auto) Eos % (Auto) Baso % (Auto) Neut # (Auto) Lymph # (Auto) [place] # (Auto) Eos # (Auto) Baso # (Auto) Immature Gran # (Auto) Sodium Potassium 2.27 L* Chloride Carbon Dioxide Anion Gap BUN Creatinine Estimated GFR (MDRD) BUN/Creatinine Ratio Glucose Calcium Magnesium Total Bilirubin AST ALT Alkaline Phosphatase Total Protein Albumin Globulin Albumin/Globulin Ratio Urine Color Urine Clarity Urine pH Ur Specific [place] Urine Protein Urine Glucose (UA) Urine Ketones Urine Blood Urine Nitrite Urine Bilirubin Urine Urobilinogen Ur Leukocyte Esterase Urine Microscopic RBC Urine Microscopic WBC Ur Squamous Epith Cells Urine Bacteria Salicylate Level mg/dL Urine Opiates Screen Ur Oxycodone Screen Urine Methadone Screen Ur Propoxyphene Screen Acetaminophen Ur Barbiturates Screen U Tricyclic Antidepress Ur Phencyclidine Scrn Ur Amphetamine Screen U Methamphetamines Scrn U Benzodiazepines Scrn Urine Cocaine Screen U Cannabinoids Screen Plasma/Serum Alcohol SARS CoV-2 RNA Rapid ADONAY Orders Category Date Time Status OBSERVATION [PLACE PATIENT OBSERVATION] .TO MEDSURG ADMISSION 10/08/21 20:50 Active (MONITORED BED) EKG-(ED ONLY) Stat CARDIO 10/08/21 18:20 Completed EKG-(IP & OP ONLY) DAILY CARDIO 10/09/21 06:00 Completed EKG-(IP & OP ONLY) DAILY CARDIO 10/10/21 06:00 Ordered ACTIVITY .Up in Chair CARE 10/08/21 20:51 Active INTAKE & OUTPUT Q8HR CARE 10/08/21 20:51 Active IP: INSERT SALINE LOCK ONCE CARE 10/08/21 20:51 Active TELEMETRY MONITORING TELE CARE 10/08/21 20:50 Active VITAL SIGNS Q4HR CARE 10/08/21 20:51 Active REGULAR DIET DIETARY 10/08/21 Breakfast Ordered ED IV/MEDIPORT/POWERPORT .ONCE EMERGENCY 10/08/21 19:02 Active Mental Health Consult [ED MENTAL HEALTH CONSULT] .ONCE EMERGENCY 10/08/21 18:23 Active ASPIRIN LEVEL [SALICYLATE] Stat LAB 10/08/21 18:32 Completed CBC W/ AUTO DIFF DAILY@0600 LAB 10/09/21 04:55 Completed CBC W/ AUTO DIFF DAILY@0600 LAB 10/10/21 06:00 Ordered CBC W/ AUTO DIFF Stat LAB 10/08/21 18:32 Completed COMPREHENSIVE METABOLIC PANEL DAILY@0600 LAB 10/09/21 04:55 Completed COMPREHENSIVE METABOLIC PANEL DAILY@0600 LAB 10/10/21 06:00 Ordered COMPREHENSIVE METABOLIC PANEL Stat LAB 10/08/21 18:32 Completed ETOH LEVEL [BLOOD ALCOHOL] Stat LAB 10/08/21 18:32 Completed MAGNESIUM Stat LAB 10/08/21 18:32 Completed MAGNESIUM Stat LAB 10/08/21 21:14 Completed POTASSIUM Timed LAB 10/09/21 12:03 Completed SARS COV-2 RNA RAPID ADONAY Stat LAB 10/08/21 19:57 Completed TYLENOL LEVEL [ACETAMINOPHEN] Stat LAB 10/08/21 18:32 Completed URINALYSIS C & S IF INDICATED Stat LAB 10/08/21 19:00 Completed URINE CULTURE Stat LAB 10/08/21 19:00 Results URINE DRUG SCREEN (RAPID FOR ED) [DRUG SCREEN, URINE, LAB 10/08/21 19:00 Completed RAPID] Stat 0.9 % Sodium Chloride [Saline Flush] MEDS 10/08/21 19:02 Active 1 syr IVF PRN PRN Atorvastatin Calcium [Lipitor] MEDS 10/09/21 21:00 Active 40 mg PO BEDTIME Brimonidine Tartrate [Brimonidine Tartrate 0.2% Opth MEDS 10/08/21 23:45 Active Lexy] 1 drop EACHEYE Q12H Dorzolamide HCl/Timolol Maleat [Cosopt] MEDS 10/09/21 00:30 Active 1 drop EACHEYE Q12H Escitalopram Oxalate [Lexapro] MEDS 10/09/21 09:00 Active 10 mg PO DAILY Hydrochlorothiazide MEDS 10/10/21 09:00 Active 25 mg PO DAILY Latanoprost [Xalatan] MEDS 10/09/21 09:00 Active 1 drop EACHEYE DAILY Lorazepam [Ativan] MEDS 10/09/21 12:24 Discontinued 0.5 mg IVP ONCE ONE Lorazepam [Ativan] MEDS 10/08/21 18:49 Discontinued 1 mg IVP ONCE STA Lorazepam [Ativan] MEDS 10/09/21 09:09 Discontinued 1 mg PO ONCE ONE Metoprolol Succinate [Toprol Xl] MEDS 10/09/21 09:00 Discontinued 12.5 mg PO DAILY Metoprolol Tartrate [Lopressor] MEDS 10/09/21 21:00 Active 25 mg PO BID Omeprazole [Prilosec] MEDS 10/09/21 09:00 Discontinued 20 mg PO QDAC Potassium Chloride [K-Dur] MEDS 10/09/21 08:00 Discontinued 20 meq PO ONCE ONE Potassium Chloride [K-Dur] MEDS 10/09/21 12:24 Discontinued 20 meq PO ONCE ONE Potassium Chloride [Potassium Chloride 10 Meq/100 ml MED 10/08/21 19:02 Discontinued Premix] 10 meq in 100 ml IV ONCE Potassium Chloride [Potassium Chloride 10 Meq/100 ml MED 10/08/21 19:02 Discontinued Premix] 10 meq in 100 ml IV ONCE Potassium Chloride [Potassium Chloride 10 Meq/100 ml MED 10/08/21 19:02 Discontinued Premix] 10 meq in 100 ml IV ONCE Potassium Chloride [Potassium Chloride 10 Meq/100 ml MED 10/08/21 20:51 Discontinued Premix] 10 meq in 100 ml IV ONCE Potassium Chloride [Potassium Chloride 10 Meq/100 ml MED 10/08/21 20:51 Discontinued Premix] 10 meq in 100 ml IV ONCE Potassium Chloride [Potassium Chloride 10 Meq/100 ml MEDS 10/09/21 00:30 Discontinued Premix] 10 meq in 100 ml IV ONCE Potassium Chloride [Potassium Chloride 10 Meq/100 ml MED 10/09/21 01:30 Discontinued Premix] 10 meq in 100 ml IV ONCE Potassium Chloride [Potassium Chloride 20 Meq/100 ml MED 10/09/21 05:38 Discontinued Premix] 20 meq in 100 ml IV ONCE Trazodone HCl [Desyrel] MED 10/08/21 20:53 Active 50 - 150 mg PO BEDTIME PRN dextroamphetamine-amphetamine [Adderall] MEDS 10/08/21 21:00 Discontinued 10 mg PO BID RESUSCITATION STATUS Routine OTHERS 10/08/21 20:51 Completed RESUSCITATION STATUS Routine OTHERS 10/08/21 22:49 Ordered PT CONSULT Routine THERAPIES 10/08/21 Ordered SPEECH CONSULT Routine THERAPIES 10/08/21 Ordered Medications Generic Name Dose Route Start Last Admin Trade Name Irvinq PRN Reason Stop Dose Admin Atorvastatin Calcium 40 mg 10/09/21 21:00 Atorvastatin Calcium 20 Mg Tablet PO BEDTIME DARREL Brimonidine Tartrate 1 drop 10/08/21 23:45 10/09/21 11:38 Brimonidine Tartrate 0.2% 5 Ml Btl EACHEYE 1 drop Q12H DARREL Administration Dorzolamide/Timolol 1 drop 10/09/21 00:30 10/09/21 11:39 Dorzolamide Hcl/Timolol Maleat Opth 10 Ml Lexy EACHEYE 1 drop Q12H DARREL Administration Escitalopram Oxalate 10 mg 10/09/21 09:00 10/09/21 08:34 Escitalopram Oxalate 10 Mg Tablet PO 10 mg DAILY DARREL Administration Hydrochlorothiazide 25 mg 10/10/21 09:00 Hydrochlorothiazide 25 Mg Tablet PO DAILY DARREL Latanoprost 1 drop 10/09/21 09:00 10/09/21 08:37 Latanoprost 2.5 Ml Opth Lexy EACHEYE 1 drop DAILY DARREL Administration Metoprolol Tartrate 25 mg 10/09/21 21:00 Metoprolol Tartrate 25 Mg Tablet PO BID DARREL Sodium Chloride 1 syr 10/08/21 19:02 0.9% Sodium Chloride 10 Ml Disp.Syrin IVF PRN PRN To flush IV Trazodone HCl 50 - 150 mg 10/08/21 20:53 Trazodone Hcl 50 Mg Tablet PO BEDTIME PRN Insomnia Discontinued Medications Generic Name Dose Route Start Last Admin Trade Name Irvinq PRN Reason Stop Dose Admin Potassium Chloride 10 meq in 100 mls @ 100 mls/hr 10/08/21 19:02 10/08/21 19:12 Potassium Chloride 10 Meq/100 Ml Premix IV 10/08/21 20:01 100 mls/hr ONCE STA Administration Potassium Chloride 10 meq in 100 mls @ 100 mls/hr 10/08/21 19:02 10/08/21 20:45 Potassium Chloride 10 Meq/100 Ml Premix IV 10/08/21 20:01 100 mls/hr ONCE STA Administration Potassium Chloride 10 meq in 100 mls @ 100 mls/hr 10/08/21 19:02 10/08/21 21:47 Potassium Chloride 10 Meq/100 Ml Premix IV 10/08/21 20:01 100 mls/hr ONCE STA Administration Potassium Chloride 10 meq in 100 mls @ 100 mls/hr 10/08/21 20:51 10/09/21 00:26 Potassium Chloride 10 Meq/100 Ml Premix IV 10/08/21 21:50 Not Given ONCE STA Potassium Chloride 10 meq in 100 mls @ 100 mls/hr 10/08/21 20:51 10/09/21 00:26 Potassium Chloride 10 Meq/100 Ml Premix IV 10/08/21 21:50 Not Given ONCE STA Potassium Chloride 10 meq in 100 mls @ 100 mls/hr 10/09/21 00:30 10/09/21 00:23 Potassium Chloride 10 Meq/100 Ml Premix IV 10/09/21 01:29 100 mls/hr ONCE ONE Administration Potassium Chloride 10 meq in 100 mls @ 100 mls/hr 10/09/21 01:30 10/09/21 02:03 Potassium Chloride 10 Meq/100 Ml Premix IV 10/09/21 02:29 100 mls/hr ONCE ONE Administration Potassium Chloride 20 meq in 100 mls @ 50 mls/hr 10/09/21 05:38 10/09/21 05:50 Potassium Chloride 20 Meq/100 Ml Premix IV 10/09/21 07:37 50 mls/hr ONCE STA Administration Lorazepam 1 mg 10/08/21 18:49 10/08/21 19:12 Lorazepam Inj 2 Mg/Ml Vial IVP 10/08/21 18:50 1 mg ONCE STA Administration Lorazepam 1 mg 10/09/21 09:09 10/09/21 09:24 Lorazepam 1 Mg Tablet PO 10/09/21 09:10 1 mg ONCE ONE Administration Lorazepam 0.5 mg 10/09/21 12:24 10/09/21 12:43 Lorazepam Inj 2 Mg/Ml Vial IVP 10/09/21 12:25 0.5 mg ONCE ONE Administration Metoprolol Succinate 12.5 mg 10/09/21 09:00 10/09/21 08:34 Metoprolol Succinate 25 Mg Tab.Er.24h PO 12.5 mg DAILY DARREL Administration Non-Formulary Medication 10 mg 10/08/21 21:00 10/09/21 08:37 Dextroamphetamine-Amphetamine [Adderall] PO Not Given BID DARREL Omeprazole 20 mg 10/09/21 09:00 10/09/21 08:34 Omeprazole 20 Mg Capsule. PO 20 mg QDAC DARREL Administration Potassium Chloride 20 meq 10/09/21 08:00 10/09/21 08:34 Potassium Chloride 20 Meq Tab PO 10/09/21 08:01 20 meq ONCE ONE Administration Potassium Chloride 20 meq 10/09/21 12:24 10/09/21 12:43 Potassium Chloride 20 Meq Tab PO 10/09/21 12:25 20 meq ONCE ONE Administration Assessment (1) Acute hypokalemia: Status: Acute Code(s): E87.6 - Hypokalemia SNOMED Code(s): 78447232 Assessment: the patient has potasssium listed as a home medication but uncertain is she is taking. She has had some nonbloody diarrhea in the past few days which is undoubtedly contributory. Plan Plan: replete K, monitor ekg--continue home meds
[2021-10-09] MEDS ORDERED: ATIVAN IVP STA (16:34)
[2021-10-09] MEDS: DESYREL PO PRN (20:49)
[2021-10-09] MEDS: LIPITOR PO SCH (20:49)
[2021-10-09] MEDS: NON-FORMULARY MEDICATION (Melatonin 10 mg Tablet) PO PRN (20:50)
[2021-10-09] MEDS: LOPRESSOR PO SCH (20:52)
[2021-10-10 05:18] LABS: BASOPHILS # (AUTO) 0.1 K/uL (0-0.2); BASOPHILS % (AUTO) 0.7 % (0.0-3.0); EOSINOPHILS # (AUTO) 0.1 K/ul (0.0-0.7); EOSINOPHILS % (AUTO) 1.5 % (0.0-7.0); HEMATOCRIT 35.6 % (37.0-47.0); HEMOGLOBIN 12.3 g/dl (12.0-16.0); IMMATURE GRANULOCYTE % (AUTO) 0.3 % (0.0-5.0); LYMPHOCYTES % (AUTO) 27.6 (10.0-50.0); MEAN CORPUSCULAR HEMOGLOBIN 29.9 pg (27.0-31.0); MEAN CORPUSCULAR HGB CONC 34.6 (31.8-35.4); MEAN CORPUSCULAR VOLUME 86.6 fl (81.0-99.0); MONOCYTES # (AUTO) 0.7 K/uL (0.4-2.0); NEUTROPHILS # (AUTO) 4.5 K/ul (2.0-6.9); NEUTROPHILS % (AUTO) 60.9 % (42.2-75.2); PLATELET COUNT 209 10^3/uL (140-440); RDW COEFFICIENT OF VARIATION 13.2 % (11.6-14.8); RED BLOOD COUNT 4.11 10^6/ul (4.20-5.40); WHITE BLOOD COUNT 7.32 K/ul (4.6-10.2)
[2021-10-10 05:34] LABS: ALANINE AMINOTRANSFERASE 26.6 U/L (0-35); ALBUMIN 3.29 g/dL (3.5-5.0); ALKALINE PHOSPHATASE 101.2 U/L (53-141); ASPARTATE AMINO TRANSFERASE 29.2 U/L (14-36); BILIRUBIN,TOTAL 0.57 mg/dL (0.2-1.3); BLOOD UREA NITROGEN 10.4 mg/dL (7-17); CALCIUM 8.64 mg/dL (8.4-10.2); CARBON DIOXIDE 26.3 mmol/L (22-30.0); CHLORIDE 104.9 mmol/L (98-107); CREATININE 0.69 mg/dL (0.60-1.30); GLUCOSE 95.4 mg/dL (74-106); TOTAL PROTEIN 5.75 g/dL (6.3-8.2)
[2021-10-10 05:42] LABS: POTASSIUM 2.06 mmol/L (3.5-5.1)
[2021-10-10] MEDS ORDERED: POTASSIUM CHLORIDE 20 MEQ/100 ML PREMIX 20 MEQ/100 ML BAG IV STA ×3 (05:49→05:54)
[2021-10-10] MEDS: K-DUR PO SCH ×4 (06:08→20:42)
--- NOTE | 2021-10-10 09:54 | PCM.PROG ---
Date Seen by Provider: 10/10/21 Time Seen by Provider: 09:47 Subjective: Patient has no complaints. She is still having diarrhea. Patient was recently on PO antibiotics for a UTI. She has noted some blood in her stool. Patient reports that she is homeless and has no where to go after discharge. Objective: Vitals: T=98.2 F, P=68, R=16, VF=253/79, SPO2=93 Alert. Mentation slow. NAD. HEENT: [] Neck: [] Lungs: [] Clear. Breath sounds equal. CVS: []RRR Abdomen: []Abdomen soft and nontender. No CVA tenderness. Extremities: []No edema Neurological: [] Skin: [] Lab/Tests/Diagnostic Imaging: [] (1) Acute hypokalemia: Status: Acute Code(s): E87.6 - Hypokalemia SNOMED Code(s): 08884552 Assessment: Patient's potassium remains low and is still being replaced. (2) Acute diarrhea: Status: Acute Code(s): R19.7 - Diarrhea, unspecified SNOMED Code(s): 316235045 (3) Acute UTI: Status: Acute Code(s): N39.0 - Urinary tract infection, site not specified SNOMED Code(s): 608658797 Assessment: Urine culture pending. Will place patient on levaquin empirically while awaiting culture results. Plan: Continue to replete potassium. Recheck potassium level this evening. Diarrhea is likely the cause of hypokalemia. Will check C diff toxin. Place on levaquin for acute UTI.
[2021-10-10] MEDS ORDERED: LEVAQUIN 500 MG/100 ML D5W 500 MG/100 ML BAG IV ONE (09:56)
[2021-10-10] MEDS: ATIVAN PO PRN ×2 (09:57→14:10)
[2021-10-10] MEDS: LOPRESSOR PO SCH ×2 (10:00→20:42)
[2021-10-10] MEDS: HYDROCHLOROTHIAZIDE PO SCH (10:00)
[2021-10-10] MEDS: LEXAPRO PO SCH (10:01)
[2021-10-10] MEDS: XALATAN EACHEYE SCH (11:33)
[2021-10-10] MEDS: BRIMONIDINE TARTRATE 0.2% OPTH SOL EACHEYE SCH ×2 (11:34→21:49)
[2021-10-10] MEDS: COSOPT EACHEYE SCH ×2 (13:44→21:49)
[2021-10-10] MEDS: DESYREL PO PRN (20:42)
[2021-10-10] MEDS: LIPITOR PO SCH (20:42)
[2021-10-11] MEDS: ATIVAN PO PRN ×3 (02:19→14:03)
[2021-10-11 05:51] LABS: BLOOD UREA NITROGEN 11.5 mg/dL (7-17); CALCIUM 8.84 mg/dL (8.4-10.2); CARBON DIOXIDE 22.8 mmol/L (22-30.0); CHLORIDE 106.3 mmol/L (98-107); CREATININE 0.67 mg/dL (0.60-1.30); GLUCOSE 96.1 mg/dL (74-106); POTASSIUM 2.97 mmol/L (3.5-5.1); SODIUM 136.7 mmol/L (134.5-145)
[2021-10-11] MEDS: LOPRESSOR PO SCH ×2 (09:38→20:33)
[2021-10-11] MEDS: K-DUR PO SCH ×3 (09:38→20:33)
[2021-10-11] MEDS: LEXAPRO PO SCH (09:38)
[2021-10-11] MEDS: HYDROCHLOROTHIAZIDE PO SCH (09:38)
[2021-10-11] MEDS: COSOPT EACHEYE SCH ×2 (09:42→20:34)
[2021-10-11] MEDS: BRIMONIDINE TARTRATE 0.2% OPTH SOL EACHEYE SCH ×2 (09:42→20:34)
[2021-10-11] MEDS: ZOFRAN 4 MG/2 ML IVP PRN ×2 (13:17→18:47)
[2021-10-11] MEDS ORDERED: ATIVAN PO PRN (14:31)
--- NOTE | 2021-10-11 15:04 | PCM.PROG ---
Date Seen by Provider: 10/11/21 Time Seen by Provider: 15:01 Subjective: pt is afraid of her daughter Karen and does not want the details of her care d/w her pt alert and oriented x 3, nad, speech fluent Objective: Vitals: T=97.5 F, P=71, R=14, EJ=385/66, SPO2=98 HEENT: []conjunctiva clear Neck: []supple Lungs: [] clear CVS: []RRR Abdomen: []nondistended Extremities: []kentrell Neurological: []alert and oriented Skin: []pink Lab/Tests/Diagnostic Imaging: [] K+ 2.9 (1) Acute hypokalemia: Status: Acute Code(s): E87.6 - Hypokalemia SNOMED Code(s): 79060443 (2) Acute diarrhea: Status: Acute Code(s): R19.7 - Diarrhea, unspecified SNOMED Code(s): 826812760 (3) Acute UTI: Status: Acute Code(s): N39.0 - Urinary tract infection, site not specified SNOMED Code(s): 560101701 Plan: consult elder protective services as part of discharge planning am potassium level care to Dr Kwok at 19:00
--- NOTE | 2021-10-11 16:26 | RS.SLPCNOT ---
Speech Case Note Date of Note: 10/11/21 Title: Speech consult Note: The FLOOR RENOVATOR and RN discussed reason for speech to consult with patient. Due to cognitive concerns, FLOOR RENOVATOR does warrant a cognitive evaluation to determine baseline cognition and assist with discharge planning. RN agreed with cognitive evaluation tomorrow this date. Thank you for this consult. Full evaluation will be completed 10/12/21.
[2021-10-11] MEDS: XALATAN EACHEYE SCH (16:36)
[2021-10-11] MEDS: DESYREL PO PRN (20:33)
[2021-10-11] MEDS: LIPITOR PO SCH (20:33)
[2021-10-11] MEDS ORDERED: XALATAN EACHEYE SCH (21:00)
[2021-10-11] MEDS: NON-FORMULARY MEDICATION (Melatonin 10 mg Tablet) PO PRN (21:15)
[2021-10-12 05:48] LABS: BLOOD UREA NITROGEN 7.1 mg/dL (7-17); CALCIUM 8.88 mg/dL (8.4-10.2); CARBON DIOXIDE 24.5 mmol/L (22-30.0); CHLORIDE 105.4 mmol/L (98-107); CREATININE 0.67 mg/dL (0.60-1.30); GLUCOSE 100.4 mg/dL (74-106); POTASSIUM 3.4 mmol/L (3.5-5.1)
[2021-10-12] MEDS: HYDROCHLOROTHIAZIDE PO SCH (09:14)
[2021-10-12] MEDS: LEXAPRO PO SCH (09:14)
[2021-10-12] MEDS: LOPRESSOR PO SCH (09:14)
[2021-10-12] MEDS: BRIMONIDINE TARTRATE 0.2% OPTH SOL EACHEYE SCH (09:14)
[2021-10-12] MEDS: K-DUR PO SCH ×2 (09:15→16:00)
[2021-10-12] MEDS: COSOPT EACHEYE SCH (09:16)
--- NOTE | 2021-10-12 09:58 | PCM.PROG ---
Date Seen by Provider: 10/12/21 Time Seen by Provider: 09:00 Subjective: Patient concerned about where she will go after discharge;case management actively involved in helping to make arrangements. She has no complaints. Objective: Vitals: T=98.2 F, P=55, R=16, TO=445/76, SPO2=95 Alert and in NAD. Anxious. HEENT: [] Neck: [] Lungs: [] Clear and breath sounds equal. CVS: []RRR. No peripheral edema. Abdomen: []Abdoment soft, nondistended and nontender. Extremities: [] Neurological: [] Skin: [] Lab/Tests/Diagnostic Imaging: [] (1) Acute hypokalemia: Status: Acute Code(s): E87.6 - Hypokalemia SNOMED Code(s): 75631785 Assessment: Potassium 3.4 this am (2) Acute diarrhea: Status: Acute Code(s): R19.7 - Diarrhea, unspecified SNOMED Code(s): 839265244 Assessment: resolved (3) Acute UTI: Status: Acute Code(s): N39.0 - Urinary tract infection, site not specified SNOMED Code(s): 264015122 Assessment: Final cultures negative Plan: Discharge patient today after she receives potassium supplement and arrangements for discharge disposition made.
--- NOTE | 2021-10-12 10:08 | PCM.DC ---
Final Diagnosis: hypokalemia diarrhea poor social situation Physical Exam Appearance: Well-appearing and Other (anxious) Ill-appearing: None Pain Distress: None Eyes: RIVKA and EOMI ENT: Ears normal, Nose normal and Oropharynx normal Neck: Supple Respiratory: Airway patent, Breath sounds clear and Breath sounds equal Cardiovascular: RRR, No rub and No murmur GI/: Soft, Nontender, No masses and Bowel sounds normal Musculoskeletal: Normal strength, ROM intact and No edema Skin: Warm, Dry and Normal color Neurological: Sensation intact, Motor intact, Alert and Oriented Psychiatric: Affect appropriate, Mood appropriate and Anxious (1) Acute hypokalemia: Status: Acute Code(s): E87.6 - Hypokalemia SNOMED Code(s): 00745555 (2) Acute diarrhea: Status: Acute Code(s): R19.7 - Diarrhea, unspecified SNOMED Code(s): 684157072 (3) Acute UTI: Status: Acute Code(s): N39.0 - Urinary tract infection, site not specified SNOMED Code(s): 445147955 (4) Poor social situation: Status: Acute Code(s): Z65.9 - Problem related to unspecified psychosocial circumstances SNOMED Code(s): 178259745 Reason for Hospitalization: Patient admitted with diarrhea and acute hypokalemia. Prognosis/Condition at Discharge: Condition at discharge was good. Medications at Discharge: Ambulatory Orders Medication Instructions Recorded metoprolol succinate 100 mg 25 mg PO BID 08/02/13 tablet,extended release 24 hr atorvastatin 10 mg tablet (Lipitor) 40 mg PO DAILY 07/23/14 brimonidine 0.2 % eye drops 1 drp BOTHEYES Q12H 04/12/21 dorzolamide 22.3 mg-timolol 6.8 1 drp BOTHEYES Q12H 04/12/21 mg/mL eye drops (Cosopt) escitalopram oxalate 10 mg tablet 10 mg PO DAILY 04/12/21 (Lexapro) latanoprost 0.005 % eye drops 1 drp BOTHEYES DAILY 04/12/21 (Xalatan) trazodone 50 mg tablet 50 - 150 mg PO QHS PRN Insomnia 04/12/21 potassium chloride 10 mEq 10 meq PO DAILY #7 caps 04/24/21 capsule,extended release ziprasidone HCl 20 mg capsule 20 mg PO BID 10/08/21 (Samantha) hydrochlorothiazide 25 mg tablet 25 mg PO DAILY 10/09/21 melatonin 10 mg tablet 10 mg PO BEDTIME PRN Insomnia 10/09/21 Lab/Diagnostics: Potassium leve at discharge was 3.4 prior to receiving further potassium supplement. Follow-ups: Follow up with primary care provider within on week. Discharge Disposition: Longterm Hospital Course: Patient admitted with diarrhea and serum potassium level of 1.9. She received both IV and PO potassium supplements. Her diarrhea resolved. She also has a poor social situation with no housing. Case management was consulted to aid in finding her appropriate housing prior to discharge. Plan: Follow up with your primary care provider in one week.
[2021-10-12 14:41] VITALS: BP 170/84; TEMP 97.2
--- NOTE | 2021-10-12 15:15 | CT ---
EXAM: CT head without contrast. HISTORY: Head trauma at level of ventriculoperitoneal shunt. COMPARISON: . TECHNIQUE: Multiple axial images of the brain were obtained from the skull base through the vertex w ithout intravenous contrast. Multiplanar reformats were provided. FINDINGS: Ventriculoperitoneal shunt catheter present from a right frontal approach with tip in the frontal horn right lateral ventricle unchanged from prior. Shunt components grossly intact. White matter low density surrounding the ventriculostomy catheter is stable. Chronic small vessel ischemic changes and atrophy again noted which are unchanged. Ventricular size stable without hydrocephalous . No acute intracranial hemorrhage or extraaxial collection. Epps-white differentiation maintained without acute infarction. Basal cisterns well visualized. Atherosclerotic calcifications present. No calvarial fracture. Paranasal sinuses and mastoid air cells are clear. Since the prior study, fi ndings are unchanged IMPRESSION: 1. No acute intracranial abnormality. 2. Stable ventriculoperitoneal shunt catheter. Stable ventricular size. 3. Chronic small vessel ischemic changes and atrophy. All CT scans are performed using dose optimization techniques as appropriate to the performed exam an d include at least one of the following: Automated exposure control, adjustment of the mA and/or kV according t o size, and the use of iterative reconstruction technique.
== END 2021-10-12 16:20 | disposition home or self-care (01) | DRG 641 ==
LOC: MEDSURG A 18:05 → ED 18:05 → MEDSURG A 22:20
PROVIDERS: ADMIT Emergency Medicine Emergency Medical Services; ATTEND Surgery
DX: R19.7 Diarrhea, unspecified; Z98.2 Presence of cerebrospinal fluid drainage device; N39.0 Urinary tract infection, site not specified; Z65.9 Problem related to unspecified psychosocial circumstances; R53.1 Weakness; F32.A Depression, unspecified; Z51.81 Encounter for therapeutic drug level monitoring; Z20.822 Contact with and (suspected) exposure to COVID-19; E87.6 Hypokalemia; Z79.899 Other long term (current) drug therapy; Z59.02 Unsheltered homelessness

== ENCOUNTER 2021-12-14 17:34 | Observation (INO) ==
[2021-12-14] MEDS ORDERED: SODIUM CHLORIDE 500 ML IV STA (17:38)
--- NOTE | 2021-12-14 17:47 | ED.PDOC ---
General ED Provider: Dr. DOUGLAS HERMAN MD Chief Complaint: Fall Stated Complaint: Patient reports falling out of a chair prior to arrival. She struck the back of her head. Denies LOC or other injury. She does complain of headache. Denies weakness, numbness, tingling, nausea, emesis or difficulty with speech or vision. Patient has a history of falls. Time Seen by Provider: 12/14/21 17:34 Mode of Arrival: Ambulance Information Source: Patient and EMT Primary Care Provider: ANNELISE DARBY Nursing and Triage Documentation Reviewed and Agree: Yes Does patient meet sepsis criteria?: No System Inflammatory Response Syndrome: Not Applicable Sepsis Protocol: For patient's 13 years and over: Temp is 96.8 and below OR 101 and greater Pulse >90 BPM Resp >20/minute Acutely Altered Mental Status Are patient's symptoms suggestive of a new infection, such as: -Pneumonia -Skin, Soft Tissue -Endocarditis -UTI -Bone, Joint Infection -Implantable Device -Acute Abdominal Infection -Wound Infection -Meningitis -Blood Stream Catheter Infection -Unknown Miscellaneous Complaint Exam Complex/Multi-System Complaint/Exam Symptoms Are: Still present Location of Pain: occiput of head Character: aching Aggravating: none Alleviating: none Associated Signs and Symptoms: Reports Headache Respiratory Distress: None JVD Present: No Tachypnea Present: No Stridor Present: No Abdominal Findings: Present Normal findings Meningeal Signs Positive: No Focal Weakness: Present None Focal Sensory Loss: Present None Gait: Unable Gag Reflex Present: Yes Skin Findings: Present Normal findings Joint Swelling Present: No In-Dwelling Device Present: No Review of Systems Review Of Systems Constitutional: Reports No symptoms Eyes: Reports No symptoms Ears, Nose, Mouth, Throat: Reports Other (occipital scalp pain) Respiratory: Reports No symptoms Cardiac: Reports No symptoms GI: Reports No symptoms : Reports No symptoms Musculoskeletal: Reports No symptoms Skin: Reports No symptoms Neurological: Reports Headache Endocrine: Reports No symptoms Hematologic/Lymphatic: Reports No symptoms All Other Systems: Reviewed and Negative [facility] Medical History ADD (attention deficit disorder) Glaucoma Hydrocephalus Family History FATHER Suicide Mother Hodgkin disease Social History History of recent travel: No Surgical History H/O tubal ligation History of abdominoplasty Hx of cholecystectomy Ventriculo-peritoneal shunt status Female Reproductive History Menstrual Hx Hysterectomy: No Hx Tubal Ligation: No Physical Exam Physical Exam Appearance: Reports Well-appearing, No pain distress, Thin and Other (Patient is anxious and evasive in answering questions.) Ill-appearing: None Pain Distress: None Eyes: Reports RIVKA and EOMI ENT: Reports Nose normal, Oropharynx normal and Other (Mild tenderness of the occipital scalp. No deformity.) Neck: Supple (nontender) Respiratory: Reports Airway patent, Breath sounds clear and Breath sounds equal Cardiovascular: Reports RRR, No rub and No murmur GI/: Reports Soft, Nontender, No masses and Bowel sounds normal Musculoskeletal: Reports Normal strength, ROM intact and No edema Skin: Reports Warm, Dry and Normal color Neurological: Reports Sensation intact, Motor intact, Cranial nerves intact, Alert and Oriented Psychiatric: Reports Affect appropriate, Mood appropriate and Anxious Critical Care Note Critical Care Note Total Critical Care Time (mins): 0 Course Course Hematology/Chemistry: 12/14/21 17:48 12/14/21 17:48 Orders, Labs, Meds: Lab Review 12/14/21 12/14/21 17:48 17:48 WBC 11.09 H RBC 4.56 Hgb 13.9 Hct 40.9 MCV 89.7 MCH 30.5 MCHC 34.0 RDW Coeff of Jose 13.8 Plt Count 263 Immature Gran % (Auto) 0.3 Neut % (Auto) 74.6 Lymph % (Auto) 16.7 [place] % (Auto) 7.0 Eos % (Auto) 1.0 Baso % (Auto) 0.4 Neut # (Auto) 8.3 H Lymph # (Auto) 1.9 [place] # (Auto) 0.8 Eos # (Auto) 0.1 Baso # (Auto) 0.0 Immature Gran # (Auto) 0.0 Sodium 134.3 L Potassium 2.68 L* Chloride 98.2 Carbon Dioxide 26.7 Anion Gap 12.08 BUN 12.5 Creatinine 0.66 Estimated GFR (MDRD) 89.00 BUN/Creatinine Ratio 18.93 Glucose 121.4 H Calcium 9.91 Total Bilirubin 0.35 AST 28.4 ALT 22.8 Alkaline Phosphatase 91.0 Total Protein 7.12 Albumin 4.31 Globulin 2.81 Albumin/Globulin Ratio 1.53 Plasma/Serum Alcohol < 10.0 Orders Category Date Time Status BLOOD ALCOHOL Stat LAB 12/14/21 17:48 Completed CBC W/ AUTO DIFF Stat LAB 12/14/21 17:48 Completed CMP [COMPREHENSIVE METABOLIC PANEL] Stat LAB 12/14/21 17:48 Completed COVID [SARS COV-2 RNA RAPID ADONAY] Stat LAB 12/14/21 Ordered URINALYSIS C & S IF INDICATED Stat LAB 12/14/21 17:38 Uncollected Acetaminophen [Tylenol] MEDS 12/14/21 18:00 Discontinued 650 mg PO ONCE STA Potassium Chloride [K-Dur] MEDS 12/14/21 18:09 Discontinued 40 meq PO ONCE STA Sodium Chloride 0.9% [Sodium Chloride] 500 ml MEDS 12/14/21 17:38 Active IV BOLUS Medications Generic Name Dose Route Start Last Admin Trade Name Freq PRN Reason Stop Dose Admin Sodium Chloride 500 mls @ 500 mls/hr 12/14/21 17:38 12/14/21 18:07 Sodium Chloride IV 12/14/21 18:37 500 mls/hr BOLUS STA Administration Discontinued Medications Generic Name Dose Route Start Last Admin Trade Name Freq PRN Reason Stop Dose Admin Acetaminophen 650 mg 12/14/21 18:00 12/14/21 18:05 Acetaminophen 325 Mg Tablet PO 12/14/21 18:01 650 mg ONCE STA Administration Potassium Chloride 40 meq 12/14/21 18:09 12/14/21 18:14 Potassium Chloride 20 Meq Tab PO 12/14/21 18:10 40 meq ONCE STA Administration Vital Signs: Temp Pulse Resp BP Pulse Ox 12/14/21 17:35 97.5 F L 83 18 175/83 H 96 Discharge Plan Discharge Patient Disposition: ADMITTED INPATIENT Discharge Problem: Acute hypokalemia, Falls Prescriptions: No Action metoprolol succinate 100 MG tablet extended release 24 hr 25 mg PO BID atorvastatin [Lipitor] 10 MG tablet 40 mg PO BEDTIME trazodone 50 mg Tablet 50 mg PO BEDTIME escitalopram oxalate [Lexapro] 10 mg Tablet 10 mg PO DAILY potassium chloride 10 mEq capsule, extended release 10 meq PO DAILY Qty: 7 0RF potassium chloride 20 mEq tablet extended release 20 meq PO DAILY Qty: 30 0RF hydrochlorothiazide 25 mg Tablet 25 mg PO DAILY Did you review [place] [employer]RD GRADE TEACHER?: Not Applicable ED Provider: DOUGLAS HERMAN Condition: Fair Physician Progress Note: []
[2021-12-14 17:54] LABS: BASOPHILS % (AUTO) 0.4 % (0.0-3.0); EOSINOPHILS # (AUTO) 0.1 K/ul (0.0-0.7); HEMATOCRIT 40.9 % (37.0-47.0); HEMOGLOBIN 13.9 g/dl (12.0-16.0); IMMATURE GRANULOCYTE % (AUTO) 0.3 % (0.0-5.0); LYMPHOCYTES # (AUTO) 1.9 K/uL (0.60-3.4); LYMPHOCYTES % (AUTO) 16.7 (10.0-50.0); MEAN CORPUSCULAR HEMOGLOBIN 30.5 pg (27.0-31.0); MEAN CORPUSCULAR VOLUME 89.7 fl (81.0-99.0); MONOCYTES # (AUTO) 0.8 K/uL (0.4-2.0); NEUTROPHILS # (AUTO) 8.3 K/ul (2.0-6.9); NEUTROPHILS % (AUTO) 74.6 % (42.2-75.2); PLATELET COUNT 263 10^3/uL (140-440); RDW COEFFICIENT OF VARIATION 13.8 % (11.6-14.8); RED BLOOD COUNT 4.56 10^6/ul (4.20-5.40); WHITE BLOOD COUNT 11.09 K/ul (4.6-10.2)
[2021-12-14] MEDS ORDERED: TYLENOL PO STA (18:00)
[2021-12-14 18:06] LABS: ALANINE AMINOTRANSFERASE 22.8 U/L (0-35); ALBUMIN 4.31 g/dL (3.5-5.0); ASPARTATE AMINO TRANSFERASE 28.4 U/L (14-36); BILIRUBIN,TOTAL 0.35 mg/dL (0.2-1.3); BLOOD UREA NITROGEN 12.5 mg/dL (7-17); CALCIUM 9.91 mg/dL (8.4-10.2); CARBON DIOXIDE 26.7 mmol/L (22-30.0); CHLORIDE 98.2 mmol/L (98-107); CREATININE 0.66 mg/dL (0.60-1.30); GLUCOSE 121.4 mg/dL (74-106); SODIUM 134.3 mmol/L (134.5-145); TOTAL PROTEIN 7.12 g/dL (6.3-8.2)
[2021-12-14 18:08] LABS: BLOOD ALCOHOL < 10.0 mg/dL (0.0-50.0); POTASSIUM 2.68 mmol/L (3.5-5.1)
[2021-12-14] MEDS ORDERED: K-DUR PO STA (18:09)
--- NOTE | 2021-12-14 18:25 | PCM ---
Chief Complaint Chief Complaint: Patient fell and presents with headache. She was found to be hypokalemic. History of Present Illness History of Present Illness: Patient presents after having fallen out of a chair just prior to admission. She struck the occipital region of her head and does complain of headache. Patient denies LOC. She also denies muscle weakness, numbness, tingling, nausea, emesis, difficulty with speech or vision. She does have a history of falls. During evaluation, she was found to have a potassium of 2.68. Review of Systems Constitutional: Reports No symptoms Eyes: Reports No symptoms Ears: Reports No symptoms Nose: Reports No symptoms Throat: Reports No symptoms Mouth: Reports No symptoms Respiratory: Reports No symptoms Cardiovascular: Reports No symptoms Gastrointestinal: Reports No symptoms Genitourinary: Reports No symptoms Neurological: Reports Headache Musculoskeletal: Reports No symptoms Skin: Reports No symptoms Immunology: Reports No symptoms Hematology: Reports No symptoms Endocrine: Reports No symptoms Psychiatric: Reports No symptoms Allergies Allergies Allergy/AdvReac Type Severity Reaction Status Date / Time Penicillins AdvReac Verified 12/14/21 18:23 Sulfa (Sulfonamide AdvReac Verified 12/14/21 18:23 Antibiotics) [facility] Medical History ADD (attention deficit disorder) Glaucoma Hydrocephalus Surgical History H/O tubal ligation History of abdominoplasty Hx of cholecystectomy Ventriculo-peritoneal shunt status Family History FATHER Suicide Mother Hodgkin disease Social History History of recent travel: No Medications Medications: Medications Generic Name Dose Route Start Last Admin Trade Name Freq PRN Reason Stop Dose Admin Sodium Chloride 500 mls @ 500 mls/hr 12/14/21 17:38 12/14/21 18:07 Sodium Chloride IV 12/14/21 18:37 500 mls/hr BOLUS STA Administration Body Composition Height: 5 ft 4 in Weight: 60.5 kg Body Mass Index (BMI): 22.8 Vital Signs Temperature: 97.5 F Pulse Rate: 83 Respiratory Rate: 18 Blood Pressure: 175/83 O2 Sat by Pulse Oximetry: 96 Physical Examination Appearance: Reports Well-appearing, No pain distress, Thin and Other (Patient is anxious.) Ill-appearing: None Pain Distress: None Eyes: Reports RIVKA and EOMI ENT: Reports Nose normal, Oropharynx normal and Other (occipital scalp tender;no deformity or hematoma) Neck: Supple (nontender) Respiratory: Reports Airway patent, Breath sounds clear and Breath sounds equal Cardiovascular: Reports RRR, No rub and No murmur GI/: Reports Soft, Nontender, No masses and Bowel sounds normal Musculoskeletal: Reports Normal strength, ROM intact and No edema Skin: Reports Warm, Dry and Normal color Neurological: Reports Sensation intact, Motor intact, Cranial nerves intact, Alert and Oriented Psychiatric: Reports Affect appropriate, Mood appropriate and Anxious Lab/Tests/Diagnostic Imaging Lab/Tests/Diagnostic Imaging: Lab Review 12/14/21 12/14/21 17:48 17:48 WBC 11.09 H RBC 4.56 Hgb 13.9 Hct 40.9 MCV 89.7 MCH 30.5 MCHC 34.0 RDW Coeff of Jose 13.8 Plt Count 263 Immature Gran % (Auto) 0.3 Neut % (Auto) 74.6 Lymph % (Auto) 16.7 [place] % (Auto) 7.0 Eos % (Auto) 1.0 Baso % (Auto) 0.4 Neut # (Auto) 8.3 H Lymph # (Auto) 1.9 [place] # (Auto) 0.8 Eos # (Auto) 0.1 Baso # (Auto) 0.0 Immature Gran # (Auto) 0.0 Sodium 134.3 L Potassium 2.68 L* Chloride 98.2 Carbon Dioxide 26.7 Anion Gap 12.08 BUN 12.5 Creatinine 0.66 Estimated GFR (MDRD) 89.00 BUN/Creatinine Ratio 18.93 Glucose 121.4 H Calcium 9.91 Total Bilirubin 0.35 AST 28.4 ALT 22.8 Alkaline Phosphatase 91.0 Total Protein 7.12 Albumin 4.31 Globulin 2.81 Albumin/Globulin Ratio 1.53 Plasma/Serum Alcohol < 10.0 Orders Category Date Time Status BLOOD ALCOHOL Stat LAB 12/14/21 17:48 Completed CBC W/ AUTO DIFF Stat LAB 12/14/21 17:48 Completed CMP [COMPREHENSIVE METABOLIC PANEL] Stat LAB 12/14/21 17:48 Completed COVID [SARS COV-2 RNA RAPID ADONAY] Stat LAB 12/14/21 Ordered URINALYSIS C & S IF INDICATED Stat LAB 12/14/21 17:38 Uncollected Acetaminophen [Tylenol] MEDS 12/14/21 18:00 Discontinued 650 mg PO ONCE STA Potassium Chloride [K-Dur] MEDS 12/14/21 18:09 Discontinued 40 meq PO ONCE STA Sodium Chloride 0.9% [Sodium Chloride] 500 ml MEDS 12/14/21 17:38 Active IV BOLUS Medications Generic Name Dose Route Start Last Admin Trade Name Freq PRN Reason Stop Dose Admin Sodium Chloride 500 mls @ 500 mls/hr 12/14/21 17:38 12/14/21 18:07 Sodium Chloride IV 12/14/21 18:37 500 mls/hr BOLUS STA Administration Discontinued Medications Generic Name Dose Route Start Last Admin Trade Name Freq PRN Reason Stop Dose Admin Acetaminophen 650 mg 12/14/21 18:00 12/14/21 18:05 Acetaminophen 325 Mg Tablet PO 12/14/21 18:01 650 mg ONCE STA Administration Potassium Chloride 40 meq 12/14/21 18:09 12/14/21 18:14 Potassium Chloride 20 Meq Tab PO 12/14/21 18:10 40 meq ONCE STA Administration Assessment (1) Falls: Status: Acute Code(s): W19.XXXA - Unspecified fall, initial encounter SNOMED Code(s): 1552676 (2) Acute hypokalemia: Status: Acute Code(s): E87.6 - Hypokalemia SNOMED Code(s): 51685542 Plan Plan: Will replenish potassium. Observe.
[2021-12-14] MEDS ORDERED: TYLENOL PO PRN (18:29)
[2021-12-14] MEDS ORDERED: K-DUR PO ONE (18:34)
[2021-12-14] MEDS ORDERED: DESYREL PO ONE ×3 (18:34→21:30)
[2021-12-14 20:29] VITALS: BMI 22.3
[2021-12-14] MEDS: SODIUM CHLORIDE 0.9%-KCL 40MEQ 1,000 ML IV STA (20:48)
[2021-12-15 04:55] LABS: BASOPHILS # (AUTO) 0.1 K/uL (0-0.2); BASOPHILS % (AUTO) 0.7 % (0.0-3.0); EOSINOPHILS # (AUTO) 0.2 K/ul (0.0-0.7); EOSINOPHILS % (AUTO) 2.4 % (0.0-7.0); HEMATOCRIT 35.3 % (37.0-47.0); HEMOGLOBIN 11.8 g/dl (12.0-16.0); IMMATURE GRANULOCYTE % (AUTO) 0.3 % (0.0-5.0); LYMPHOCYTES # (AUTO) 1.6 K/uL (0.60-3.4); LYMPHOCYTES % (AUTO) 22.4 (10.0-50.0); MEAN CORPUSCULAR HEMOGLOBIN 30.7 pg (27.0-31.0); MEAN CORPUSCULAR HGB CONC 33.4 (31.8-35.4); MEAN CORPUSCULAR VOLUME 91.9 fl (81.0-99.0); MONOCYTES # (AUTO) 0.6 K/uL (0.4-2.0); MONOCYTES % (AUTO) 8.6 (0-10); NEUTROPHILS # (AUTO) 4.7 K/ul (2.0-6.9); NEUTROPHILS % (AUTO) 65.6 % (42.2-75.2); PLATELET COUNT 212 10^3/uL (140-440); RED BLOOD COUNT 3.84 10^6/ul (4.20-5.40); WHITE BLOOD COUNT 7.19 K/ul (4.6-10.2)
[2021-12-15 05:07] LABS: ALBUMIN 3.26 g/dL (3.5-5.0); ALKALINE PHOSPHATASE 78.7 U/L (53-141); ASPARTATE AMINO TRANSFERASE 22.3 U/L (14-36); BILIRUBIN,TOTAL 0.21 mg/dL (0.2-1.3); BLOOD UREA NITROGEN 9.5 mg/dL (7-17); CALCIUM 9.16 mg/dL (8.4-10.2); CARBON DIOXIDE 25.8 mmol/L (22-30.0); CREATININE 0.61 mg/dL (0.60-1.30); POTASSIUM 3.64 mmol/L (3.5-5.1); SODIUM 136.7 mmol/L (134.5-145); TOTAL PROTEIN 5.63 g/dL (6.3-8.2)
[2021-12-15 06:05] LABS: BILIRUBIN,URINE Negative (NEGATIVE); CLARITY,URINE Clear (CLEAR); COLOR,URINE Yellow (YELLOW); GLUCOSE, URINE (UA) Negative (NEGATIVE); KETONES,URINE Negative (NEGATIVE); LEUKOCYTE ESTERASE ,URINE 2+ (NEGATIVE); NITRITE,URINE Negative (NEGATIVE); PROTEIN,URINE Negative (NEGATIVE); URINE, BLOOD Negative (NEGATIVE); UROBILINOGEN,URINE 0.2 (0.2)
--- NOTE | 2021-12-15 08:25 | PCM.PROG ---
Date Seen by Provider: 12/15/21 Time Seen by Provider: 07:45 Subjective: Admitted last night with history of falls and hypokalemia for Replacement of Potassium. States she feels well except mild left upper quadrant abdomen. She had CT head yesterday that was negative. PAST MEDICAL HISTORY Hx Head, Eyes, Ears, Nose and/ Yes or Throat Disorders Hx Eye Surgery Yes: retina detachment left eye Hx Neurological Disorders Yes: normal pressure hydronephralis shunt placed 5 years Hx Neurologic Surgery Yes: see above Hx Brain Shunt Yes Hx Cardiac Disorders Yes Hx Hypercholesterolemia Yes Hx Chest Pain Yes: 08/25 admission Hx Palpitations Yes Hx Hypertension Yes DVT or PE Present on Arrival No Hx Respiratory Disorders Yes Hx Pneumonia Yes: 2012 Hx Gastrointestinal Disorders Yes: Barretts esophagitis Hx Nausea Yes Hx Gastroesophageal Reflux Yes Hx Genitourinary Disorders Yes Hx Urinary Tract Infection Yes Hx Kidney (Renal Surgery) Yes: ureter obstructed age 19 Hx Gynecologic Surgery Yes: 2 C sections, tubal ligation Hx Breast Surgery Yes: breast augmentation/then removal Hx Musculoskeletal Disorders Yes Hx Osteoarthritis Yes Hx Joint Replacement Yes: bilateral knee replacement Hx Endocrine Disorders No Hx Psychiatric Problems Yes Hx Depression Yes Hx Anxiety Yes Smoking Status Former smoker Hx Tobacco Use Yes: quit 4-5 years ago Hx Tetanus Toxoid Vaccination Yes Hx Influenza Vaccination Yes Hx Pneumococcal Vaccination Yes Hx Surgeries Yes: gallbladder, appendectomy, knee replacement, retina Hx of Mammogram Yes: 08/10/15 FATHER Suicide Mother Hodgkin disease (Updated 12/15/21 @ 08:31 by SUSAN COLES MD) ADD (attention deficit disorder) Anxiety [place] esophagus Disorder of kidney and ureter Glaucoma Hydrocephalus Hypercholesteremia Hypertension Urinary tract infection History of recent travel: No (Updated 12/14/21 @ 20:22 by KAYA MAST RN) H/O tubal ligation History of abdominoplasty History of bilateral knee replacement Hx of cholecystectomy Ventriculo-peritoneal shunt status Objective: Vitals: T=97.1 F, P=76, R=19, LI=413/70, SPO2=96 HEENT: [mucus membranes moist] Neck: [supple] Lungs: [ Clinically clear Bilaterally ] CVS: [Regular S1 and S2 only] Abdomen: [Mid upper abdominal scar, right flank to RLQ abdomen scar, Soft not tender to palpation] Extremities: [No edema, Pedal pulses intact bilaterally, warm] Neurological: [AA Ox3, Moves all fours no focal neurological deficits, no facial asymmetry, Speech is clear.] Skin: [No rash, chronic skin lesion ] Lab/Tests/Diagnostic Imaging: [ Laboratory Results - last 24 hr 12/14/21 12/14/21 12/14/21 17:48 17:48 18:18 WBC 11.09 H RBC 4.56 Hgb 13.9 Hct 40.9 MCV 89.7 MCH 30.5 MCHC 34.0 RDW Coeff of Jose 13.8 Plt Count 263 Immature Gran % (Auto) 0.3 Neut % (Auto) 74.6 Lymph % (Auto) 16.7 [place] % (Auto) 7.0 Eos % (Auto) 1.0 Baso % (Auto) 0.4 Neut # (Auto) 8.3 H Lymph # (Auto) 1.9 [place] # (Auto) 0.8 Eos # (Auto) 0.1 Baso # (Auto) 0.0 Immature Gran # (Auto) 0.0 Sodium 134.3 L Potassium 2.68 L* Chloride 98.2 Carbon Dioxide 26.7 Anion Gap 12.08 BUN 12.5 Creatinine 0.66 Estimated GFR (MDRD) 89.00 BUN/Creatinine Ratio 18.93 Glucose 121.4 H Calcium 9.91 Total Bilirubin 0.35 AST 28.4 ALT 22.8 Alkaline Phosphatase 91.0 Total Protein 7.12 Albumin 4.31 Globulin 2.81 Albumin/Globulin Ratio 1.53 Urine Color Urine Clarity Urine pH Ur Specific [place] Urine Protein Urine Glucose (UA) Urine Ketones Urine Blood Urine Nitrite Urine Bilirubin Urine Urobilinogen Ur Leukocyte Esterase Urine Microscopic WBC Ur Squamous Epith Cells Plasma/Serum Alcohol < 10.0 SARS CoV-2 RNA Rapid ADONAY Negative 12/15/21 12/15/21 12/15/21 04:48 04:48 05:35 WBC 7.19 RBC 3.84 L Hgb 11.8 L Hct 35.3 L MCV 91.9 MCH 30.7 MCHC 33.4 RDW Coeff of Jose 14.0 Plt Count 212 Immature Gran % (Auto) 0.3 Neut % (Auto) 65.6 Lymph % (Auto) 22.4 [place] % (Auto) 8.6 Eos % (Auto) 2.4 Baso % (Auto) 0.7 Neut # (Auto) 4.7 Lymph # (Auto) 1.6 [place] # (Auto) 0.6 Eos # (Auto) 0.2 Baso # (Auto) 0.1 Immature Gran # (Auto) 0.0 Sodium 136.7 Potassium 3.64 Chloride 109.0 H Carbon Dioxide 25.8 Anion Gap 5.54 BUN 9.5 Creatinine 0.61 Estimated GFR (MDRD) 97.00 BUN/Creatinine Ratio 15.57 Glucose 103.0 Calcium 9.16 Total Bilirubin 0.21 AST 22.3 ALT 18.0 Alkaline Phosphatase 78.7 Total Protein 5.63 L Albumin 3.26 L Globulin 2.37 Albumin/Globulin Ratio 1.37 Urine Color Yellow Urine Clarity Clear Urine pH 7.0 Ur Specific [place] 1.015 Urine Protein Negative Urine Glucose (UA) Negative Urine Ketones Negative Urine Blood Negative Urine Nitrite Negative Urine Bilirubin Negative Urine Urobilinogen 0.2 Ur Leukocyte Esterase 2+ H Urine Microscopic WBC 10-20 Ur Squamous Epith Cells 10-20 Plasma/Serum Alcohol SARS CoV-2 RNA Rapid ADONAY ] (1) Acute UTI: Status: Acute Code(s): N39.0 - Urinary tract infection, site not specified SNOMED Code(s): 970260363 Assessment: Noted Urinary Tract infection, will start IV Rocephin, Daily First Dose now. (2) Falls: Status: Acute Code(s): W19.XXXA - Unspecified fall, initial encounter SNOMED Code(s): 0319557 Assessment: May be due to Hypokalemia and UTI. Treat UTI and Get Inpatient Physical therapy assessment and Treatment to reduce falls. (3) Acute hypokalemia: Status: Acute Code(s): E87.6 - Hypokalemia SNOMED Code(s): 48373169 Assessment: * Resolved, Likely due to HCTZ. Recently visited the ER for same was told to increase K but did nor remember. on review of Electrolytes from March 2021. She had multiple Episodes of severe hypokalemia which is likely due to HCTZ. * For his reason will Discontinue HCTZ and start ARB. * Monitor blood pressure due to this change. * If Hypokalemia was caused by HCTZ then by changing to ARB Her K should be stable. Additionally. ARBs can spare K or slightly cause hyperKalemia. (4) Poor social situation: Status: Acute Code(s): Z65.9 - Problem related to unspecified psychosocial circumstances SNOMED Code(s): 309965656 Assessment: Patient was concerned about not being allowed to go back to Assisted living, RN to clarify disposition upon discharge and see if she needs transportation. Will get social work involved (5) Hypertension: Status: Acute Code(s): I10 - Essential (primary) hypertension SNOMED Code(s): 99987775 Assessment: Blood pressure controlled on HCTZ but having severe hypokalemia, will change to ARB as above. (6) Hypercholesteremia: Status: Acute Code(s): E78.00 - Pure hypercholesterolemia, unspecified SNOMED Code(s): 27582408 Assessment: is on replacement (7) Depression: Status: Acute Code(s): F32.A - Depression, unspecified SNOMED Code(s): 53384713 Assessment: Currently on Lexapro, will get Depression and MMSE screen continue Lexapro. (8) Chronic insomnia: Status: Acute Code(s): F51.04 - Psychophysiologic insomnia SNOMED Code(s): 771213767 Assessment: Is on Trazodone which she states helps. Plan: As above.
[2021-12-15] MEDS ORDERED: K-DUR PO ONE (09:00)
[2021-12-15] MEDS ORDERED: HYDROCHLOROTHIAZIDE PO SCH (09:00)
[2021-12-15] MEDS: COZAAR PO SCH (09:49)
[2021-12-15] MEDS: TOPROL XL PO SCH ×2 (09:49→21:04)
[2021-12-15] MEDS: LEXAPRO PO SCH (09:51)
[2021-12-15] MEDS: ROCEPHIN 1 GM/50 ML D5W 1 GM/50 ML BAG IV SCH (10:34)
[2021-12-15] MEDS: NICODERM 21 MG TD SCH (12:39)
--- NOTE | 2021-12-15 13:56 | CT ---
EXAMINATION: Head CT without contrast HISTORY: Trauma. Headache. TECHNIQUE: Noncontrast CT of the brain was performed with images acquired from skull base to vertex. 2-D coronal and sagittal reformatted images were obtained from the axial source images. Contrast Dose: None. CT Dose Reduction Techniques Performed: Yes. COMPARISON: CT scan of the brain dated 10/12/2021. FINDINGS: Topogram demonstrates right sided CHURCH ADMINISTRATOR shunt catheter visualized. No other abnormality. Intraparenchymal hemorrhage: None. Parenchyma: Normal malave-white differentiation. No mass effect or midline shift. Chronic: Decreased attenuation of the periventricular white matter consistent with microangiopathic i schemic change. Vascular calcifications consistent with arthrosclerosis. Extra-axial spaces and basal cisterns: Normal. Ventricles: Enlargement of the ventricles and subarachnoid spaces consistent with atrophy. Shunt cath eter entering via the right superior frontal approach with the tip of the catheter in the frontal hor n of the right lateral ventricle. Mild gliosis adjacent to the catheter in the right frontal lobe, u nchanged. Paranasal sinuses and mastoid air cells: Visualized portions of paranasal sinuses are clear. Mastoid air cells are clear. Orbits: Normal visualized portions. Sella/Skull Base: Normal. Other: Scalp and visualized soft tissues are normal. Calvarium is normal. IMPRESSION: 1. Right sided CHURCH ADMINISTRATOR shunt catheter with the tip of the catheter in the frontal foreign of the right la teral ventricle. Mild adjacent scoliosis. 2. Microangiopathic ischemic change and atrophy. 3. Atherosclerosis. 4. No intracranial hemorrhage. 5. Otherwise unremarkable noncontrast CT scan of the brain. 5. No significant change from 10/12/2021. All CT scans are performed using dose optimization techniques as appropriate to the performed exam an d include at least one of the following: Automated exposure control, adjustment of the mA and/or kV according t o size, and the use of iterative reconstruction technique.
[2021-12-15] MEDS ORDERED: ATIVAN PO PRN (18:12)
[2021-12-15] MEDS ORDERED: LIPITOR PO SCH ×2 (21:00)
[2021-12-15] MEDS ORDERED: DESYREL PO SCH (21:00)
[2021-12-16 04:53] LABS: BASOPHILS # (AUTO) 0.1 K/uL (0-0.2); BASOPHILS % (AUTO) 0.9 % (0.0-3.0); EOSINOPHILS # (AUTO) 0.2 K/ul (0.0-0.7); EOSINOPHILS % (AUTO) 2.4 % (0.0-7.0); HEMATOCRIT 36.1 % (37.0-47.0); IMMATURE GRANULOCYTE % (AUTO) 0.3 % (0.0-5.0); LYMPHOCYTES # (AUTO) 1.5 K/uL (0.60-3.4); LYMPHOCYTES % (AUTO) 17.7 (10.0-50.0); MEAN CORPUSCULAR HEMOGLOBIN 30.5 pg (27.0-31.0); MEAN CORPUSCULAR HGB CONC 33.2 (31.8-35.4); MEAN CORPUSCULAR VOLUME 91.9 fl (81.0-99.0); MONOCYTES # (AUTO) 0.6 K/uL (0.4-2.0); MONOCYTES % (AUTO) 6.5 (0-10); NEUTROPHILS # (AUTO) 6.3 K/ul (2.0-6.9); NEUTROPHILS % (AUTO) 72.2 % (42.2-75.2); PLATELET COUNT 220 10^3/uL (140-440); RDW COEFFICIENT OF VARIATION 13.9 % (11.6-14.8); RED BLOOD COUNT 3.93 10^6/ul (4.20-5.40); WHITE BLOOD COUNT 8.72 K/ul (4.6-10.2)
[2021-12-16 05:08] LABS: ALANINE AMINOTRANSFERASE 17.8 U/L (0-35); ALBUMIN 3.49 g/dL (3.5-5.0); ALKALINE PHOSPHATASE 81.9 U/L (53-141); ASPARTATE AMINO TRANSFERASE 26.3 U/L (14-36); BILIRUBIN,TOTAL 0.48 mg/dL (0.2-1.3); BLOOD UREA NITROGEN 10.3 mg/dL (7-17); CALCIUM 9.36 mg/dL (8.4-10.2); CARBON DIOXIDE 26.2 mmol/L (22-30.0); CHLORIDE 108.5 mmol/L (98-107); CREATININE 0.57 mg/dL (0.60-1.30); GLUCOSE 94.7 mg/dL (74-106); MAGNESIUM 1.88 mg/dL (1.6-2.3); POTASSIUM 3.74 mmol/L (3.5-5.1); SODIUM 137.3 mmol/L (134.5-145); TOTAL PROTEIN 5.99 g/dL (6.3-8.2)
--- NOTE | 2021-12-16 07:51 | PCM.DC ---
Final Diagnosis: Hypokalemia Acute UTI Physical Exam Appearance: Well-appearing Pain Distress: None Eyes: RIKVA and EOMI ENT: Not Examined Neck: Supple Respiratory: Airway patent, Breath sounds clear, Breath sounds equal and Breath sounds diminished Cardiovascular: RRR, Pulses normal, No rub and No murmur GI/: Soft and Nontender Musculoskeletal: Normal strength Skin: Warm Neurological: Sensation intact, Motor intact, Reflexes intact and Cranial nerves intact Psychiatric: Affect appropriate (1) Acute UTI: Status: Acute Code(s): N39.0 - Urinary tract infection, site not specified SNOMED Code(s): 379581907 (2) Falls: Status: Acute Code(s): W19.XXXA - Unspecified fall, initial encounter SNOMED Code(s): 0155186 (3) Acute hypokalemia: Status: Acute Code(s): E87.6 - Hypokalemia SNOMED Code(s): 83852904 (4) Poor social situation: Status: Acute Code(s): Z65.9 - Problem related to unspecified psychosocial circumstances SNOMED Code(s): 259913099 (5) Hypertension: Status: Acute Code(s): I10 - Essential (primary) hypertension SNOMED Code(s): 28489716 (6) Hypercholesteremia: Status: Acute Code(s): E78.00 - Pure hypercholesterolemia, unspecified SNOMED Code(s): 19153105 (7) Depression: Status: Acute Code(s): F32.A - Depression, unspecified SNOMED Code(s): 26842164 (8) Chronic insomnia: Status: Acute Code(s): F51.04 - Psychophysiologic insomnia SNOMED Code(s): 985910646 Reason for Hospitalization: Weakness Hypokalemia Acute UTI Prognosis/Condition at Discharge: Improved and Stable Medications at Discharge: Home meds plus Kelfex added for UTI Follow-ups: Follow-up with your doctor to assure resolution of your UTI and make sure your potassium remains stable in 1 week. Discharge Disposition: Assisted Living Facility Hospital Course: Pt admitted for weakenss, hypokalemia and acute UTI. HCTZ was stopped as possible cause of low K+. Started on Losartan. Treated with K+ and Rocephin and is doing much better. Ready to go home Plan: Continue Kelfex for 5 more days. Stop HCTZ and start taking Losartan. Follow up with your doctor for repeat K+ level and to assure resolution of UTI.
[2021-12-16] MEDS ORDERED: TOPROL XL PO SCH (09:00)
[2021-12-16] MEDS: ROCEPHIN 1 GM/50 ML D5W 1 GM/50 ML BAG IV SCH (09:17)
[2021-12-16] MEDS: NICODERM 21 MG TD SCH (09:28)
[2021-12-16] MEDS: LEXAPRO PO SCH (09:30)
[2021-12-16] MEDS: COZAAR PO SCH (09:30)
[2021-12-16 11:08] VITALS: BP 154/82; TEMP 96.8
== END 2021-12-16 10:55 | disposition home or self-care (01) ==
LOC: MEDSURG A 17:34 → ED 17:34 → MEDSURG A 20:17
PROVIDERS: ADMIT Surgery; ATTEND Emergency Medicine
DX: Z65.9 Problem related to unspecified psychosocial circumstances; N39.0 Urinary tract infection, site not specified; Y93.9 Activity, unspecified; Z20.822 Contact with and (suspected) exposure to COVID-19; Z79.899 Other long term (current) drug therapy; F32.A Depression, unspecified; Z51.81 Encounter for therapeutic drug level monitoring; F51.04 Psychophysiologic insomnia; E78.00 Pure hypercholesterolemia, unspecified; I10 Essential (primary) hypertension; W19.XXXA Unspecified fall, initial encounter; Z91.81 History of falling; Y92.099 Unspecified place in other non-institutional residence as the place of occurrence of the external cause; E87.6 Hypokalemia; Y99.9 Unspecified external cause status

== ENCOUNTER 2024-01-16 19:46 | Observation (INO) ==
[2024-01-16 21:57] LABS: BASOPHILS % (AUTO) 0.2 % (0.0-3.0); EOSINOPHILS # (AUTO) 0.1 K/ul (0.0-0.7); EOSINOPHILS % (AUTO) 0.7 % (0.0-7.0); HEMATOCRIT 40.7 % (37.0-47.0); HEMOGLOBIN 13.9 g/dl (12.0-16.0); IMMATURE GRANULOCYTE % (AUTO) 0.2 % (0.0-5.0); LYMPHOCYTES # (AUTO) 1.7 K/uL (0.60-3.4); LYMPHOCYTES % (AUTO) 13.5 (10.0-50.0); MEAN CORPUSCULAR HEMOGLOBIN 29.6 pg (27.0-31.0); MEAN CORPUSCULAR HGB CONC 34.2 (31.8-35.4); MEAN CORPUSCULAR VOLUME 86.6 fl (81.0-99.0); MONOCYTES # (AUTO) 1.1 K/uL (0.4-2.0); MONOCYTES % (AUTO) 9.3 (0-10); NEUTROPHILS # (AUTO) 9.3 K/ul (2.0-6.9); NEUTROPHILS % (AUTO) 76.1 % (42.2-75.2); PLATELET COUNT 273 10^3/uL (140-440)
[2024-01-16 22:10] LABS: ALANINE AMINOTRANSFERASE 24.8 U/L (0-35); ALBUMIN 4.32 g/dL (3.5-5.0); ALKALINE PHOSPHATASE 142.7 U/L (53-141); ASPARTATE AMINO TRANSFERASE 26.5 U/L (14-36); BILIRUBIN,TOTAL 0.67 mg/dL (0.2-1.3); BLOOD UREA NITROGEN 22.8 mg/dL (7-17); CALCIUM 9.79 mg/dL (8.4-10.2); CARBON DIOXIDE 25.1 mmol/L (22-30.0); CHLORIDE 97.3 mmol/L (98-107); CREATININE 0.89 mg/dL (0.60-1.30); GLUCOSE 132.6 mg/dL (74-106); SODIUM 131.9 mmol/L (134.5-145); TOTAL PROTEIN 7.02 g/dL (6.3-8.2)
[2024-01-16 22:11] LABS: SARS COV-2 RNA RAPID NAAT NEGATIVE (NEGATIVE)
[2024-01-16 22:12] LABS: ACETAMINOPHEN < 10.0 ug/ml (10-30); BLOOD ALCOHOL < 10.0 mg/dL (0.0-50.0); POTASSIUM 2.65 mmol/L (3.5-5.1); SALICYLATE < 1.00 mg/dL (0-20.0)
--- NOTE | 2024-01-16 22:28 | ED.PDOC ---
General ED Provider: Dr. ADAM ALBERTO DO Chief Complaint: Behavioral Complaint Time Seen by Provider: 01/16/24 20:59 Information Source: EMT Primary Care Provider: ANNELISE DARBY What is Opioid Naive?: *Opioid Naive implies the patient is not already taking opioids or not chronically receiving opioids on a daily basis. *PRN dosing is not "usually" associated with tolerance. *Patients are at higher risk of over-sedation and aspiration. What is Opioid Tolerant?: *Opioid Tolerance implies less than the expected response to an opioid. *Acquired tolerance is defined by the patient taking 60mg of oral morphine daily (or equianalgesic dose of another opioid) for 1 week or more. *Often associated with chronic pain. *May take more than usual dose to achieve desired pain control. 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) Anxiety F41.9 - Anxiety disorder, unspecified (ICD-10) Acute diarrhea R19.7 - Diarrhea, unspecified (ICD-10) Hydrocephalus G91.9 - Hydrocephalus, unspecified (ICD-10) Glaucoma H40.9 - Unspecified glaucoma (ICD-10) ADD (attention deficit disorder) F98.8 - Other specified behavioral and emotional disorders with onset usually occurring in childhood and adolescence (ICD-10) Chronic renal disease, stage IV N18.4 - Chronic kidney disease, stage 4 (severe) (ICD-10) Acute kidney injury N17.9 - Acute kidney failure, unspecified (ICD-10) Dehydration E86.0 - Dehydration (ICD-10) Forehead laceration S01.81XA - Laceration without foreign body of other part of head, initial encounter (ICD-10) Closed head injury S09.90XA - Unspecified injury of head, initial encounter (ICD-10) Chest pain R07.9 - CHEST PAIN, UNSPECIFIED (ICD-10) Radial head fracture, closed S52.123A - DISP FX OF HEAD OF UNSP RADIUS, INIT FOR CLOS FX (ICD-10) Family History FATHER Suicide Mother Hodgkin disease Social History History of recent travel: No Surgical History (Updated 12/14/21 @ 20:22 by KAYA MAST, RN) History of bilateral knee replacement Z96.653 - Presence of artificial knee joint, bilateral (ICD-10) 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 (ICD-10) H/O tubal ligation Z98.51 - Tubal ligation status (ICD-10) History of abdominoplasty Z98.890 - Other specified postprocedural states (ICD-10) Hx of cholecystectomy Z90.49 - Acquired absence of other specified parts of digestive tract (ICD- 10) Female Reproductive History Menstrual Hx Hysterectomy: No Hx Tubal Ligation: No Course Course 01/16/24 21:50 01/16/24 21:50 Orders, Labs, Meds: Lab Review 01/16/24 01/16/24 21:35 21:50 WBC 12.20 H RBC 4.70 Hgb 13.9 Hct 40.7 MCV 86.6 MCH 29.6 MCHC 34.2 RDW Coeff of Jose 12.0 Plt Count 273 Immature Gran % (Auto) 0.2 Neut % (Auto) 76.1 H Lymph % (Auto) 13.5 [place] % (Auto) 9.3 Eos % (Auto) 0.7 Baso % (Auto) 0.2 Neut # (Auto) 9.3 H Lymph # (Auto) 1.7 [place] # (Auto) 1.1 Eos # (Auto) 0.1 Baso # (Auto) 0.0 Immature Gran # (Auto) 0.0 Sodium 131.9 L Potassium 2.65 L* Chloride 97.3 L Carbon Dioxide 25.1 Anion Gap 12.15 BUN 22.8 H Creatinine 0.89 Estimated GFR (MDRD) 62.00 BUN/Creatinine Ratio 25.61 Glucose 132.6 H Calcium 9.79 Total Bilirubin 0.67 AST 26.5 ALT 24.8 Alkaline Phosphatase 142.7 H Total Protein 7.02 Albumin 4.32 Globulin 2.70 Albumin/Globulin Ratio 1.60 TSH Pending Salicylate Level mg/dL < 1.00 Acetaminophen < 10.0 L Plasma/Serum Alcohol < 10.0 SARS CoV-2 RNA Rapid ADONAY Negative Orders Category Date Time Status EKG-(ED ONLY) Stat CARDIO 01/16/24 21:34 Completed ACETAMINOPHEN Stat LAB 01/16/24 21:50 Results BLOOD ALCOHOL Stat LAB 01/16/24 21:50 Results CBC W/ AUTO DIFF Stat LAB 01/16/24 21:50 Completed COMPREHENSIVE METABOLIC PANEL Stat LAB 01/16/24 21:50 Results DRUG SCREEN, URINE, RAPID Stat LAB 01/16/24 21:34 Uncollected SALICYLATE Stat LAB 01/16/24 21:50 Results SARS COV-2 RNA RAPID ADONAY Stat LAB 01/16/24 21:35 Completed THYROID STIMULATING HORMONE Stat LAB 01/16/24 21:50 Results URINALYSIS C & S IF INDICATED Stat LAB 01/16/24 21:34 Uncollected Magnesium Oxide [Mag-Ox] Meds 01/16/24 22:08 Discontinued 800 mg PO ONCE STA Medications Discontinued Medications Generic Name Dose Route Start Last Admin Trade Name Freq PRN Reason Stop Dose Admin Magnesium Oxide 800 mg 01/16/24 22:08 Magnesium Oxide 400 Mg Tablet PO 01/16/24 22:09 ONCE STA Vital Signs: Temp Pulse Resp BP Pulse Ox 01/16/24 19:50 98.1 F 77 18 92/56 L 94 L Discharge Plan Discharge Prescriptions: No Action metoprolol succinate 100 MG tablet extended release 24 hr 25 mg PO BID atorvastatin [Lipitor] 10 MG tablet 40 mg PO BEDTIME trazodone 50 mg Tablet 50 mg PO BEDTIME escitalopram oxalate [Lexapro] 10 mg Tablet 10 mg PO DAILY potassium chloride 20 mEq tablet extended release 20 meq PO DAILY Qty: 30 0RF losartan 50 mg tablet 50 mg PO DAILY Qty: 30 0RF ED Provider: ADAM ALBERTO
[2024-01-16] MEDS: K-DUR PO ONE (22:39)
[2024-01-16] MEDS: MAG-OX PO STA (22:39)
[2024-01-16 22:40] LABS: THYROID STIMULATING HORMONE 0.447 uIU/L (0.465-4.68)
[2024-01-16 23:47] LABS: BILIRUBIN,URINE Negative (NEGATIVE); CLARITY,URINE Clear (CLEAR); COLOR,URINE Yellow (YELLOW); GLUCOSE, URINE (UA) Negative (NEGATIVE); KETONES,URINE Negative (NEGATIVE); LEUKOCYTE ESTERASE ,URINE 2+ (NEGATIVE); NITRITE,URINE Negative (NEGATIVE); PROTEIN,URINE Negative (NEGATIVE); URINE, BLOOD Trace-intact (NEGATIVE); UROBILINOGEN,URINE 0.2 (0.2)
[2024-01-16 23:49] LABS: SQUAMOUS EPITHELIAL CELL,UR NOT PRESENT (0-5)
[2024-01-16 23:56] LABS: AMPHETAMINE SCREEN,URINE NEGATIVE (NEGATIVE); BARBITURATE SCREEN,URINE NEGATIVE (NEGATIVE); BENZODIAZEPINES SCREEN,URINE NEGATIVE (NEGATIVE); CANNABINOID SCREEN,URINE NEGATIVE (NEGATIVE); COCAIN SCREEN,URINE NEGATIVE (NEGATIVE); METHADONE URINE SCREEN NEGATIVE (NEGATIVE); METHAMPHETAMINES SCREEN,URINE NEGATIVE (NEGATIVE); OPIATE SCREEN,URINE NEGATIVE (NEGATIVE); OXYCODONE URINE SCREEN NEGATIVE (NEGATIVE); PHENCYCLIDINE SCREEN,URINE NEGATIVE (NEGATIVE); TRANSITIONAL EPI CELLS,URINE 0-2 (NOT PRESENT); TRICYCLIC ANTIDEPRESSANTS URIN POSITIVE (NEGATIVE); URINE RBC, MICROSCOPIC 0-2 (0-2)
[2024-01-17] MEDS ORDERED: TYLENOL PO PRN (06:54)
[2024-01-17 07:10] LABS: BASOPHILS % (AUTO) 0.3 % (0.0-3.0); EOSINOPHILS # (AUTO) 0.1 K/ul (0.0-0.7); EOSINOPHILS % (AUTO) 1.3 % (0.0-7.0); HEMATOCRIT 37.5 % (37.0-47.0); HEMOGLOBIN 12.6 g/dl (12.0-16.0); IMMATURE GRANULOCYTE % (AUTO) 0.3 % (0.0-5.0); LYMPHOCYTES # (AUTO) 1.5 K/uL (0.60-3.4); MEAN CORPUSCULAR HEMOGLOBIN 29.3 pg (27.0-31.0); MEAN CORPUSCULAR HGB CONC 33.6 (31.8-35.4); MEAN CORPUSCULAR VOLUME 87.2 fl (81.0-99.0); MONOCYTES % (AUTO) 11.6 (0-10); NEUTROPHILS # (AUTO) 6.2 K/ul (2.0-6.9); NEUTROPHILS % (AUTO) 69.5 % (42.2-75.2); PLATELET COUNT 245 10^3/uL (140-440); RDW COEFFICIENT OF VARIATION 12.4 % (11.6-14.8); WHITE BLOOD COUNT 8.94 K/ul (4.6-10.2)
[2024-01-17] MEDS: SODIUM CHLORIDE 0.9%-KCL 40MEQ 1,000 ML IV ONE (07:13)
[2024-01-17 07:24] LABS: ALANINE AMINOTRANSFERASE 21.6 U/L (0-35); ALBUMIN 3.66 g/dL (3.5-5.0); ALKALINE PHOSPHATASE 120.1 U/L (53-141); ASPARTATE AMINO TRANSFERASE 27.4 U/L (14-36); BILIRUBIN,TOTAL 0.56 mg/dL (0.2-1.3); BLOOD UREA NITROGEN 20.1 mg/dL (7-17); CALCIUM 9.36 mg/dL (8.4-10.2); CARBON DIOXIDE 28.1 mmol/L (22-30.0); CHLORIDE 100.9 mmol/L (98-107); CREATININE 0.82 mg/dL (0.60-1.30); GLUCOSE 110.8 mg/dL (74-106); MAGNESIUM 2.15 mg/dL (1.6-2.3); POTASSIUM 3.36 mmol/L (3.5-5.1); SODIUM 135.2 mmol/L (134.5-145); TOTAL PROTEIN 6.28 g/dL (6.3-8.2)
[2024-01-17 07:55] VITALS: BMI 25.1
--- NOTE | 2024-01-17 09:28 | PCM.SS ---
Provider Provider[facility] MATHEW[facility] Date Admission Date: 01/17/24 Discharge Date Discharge Date: 01/17/24 Primary Care Physician Primary Care Physician: ANNELISE DARBY Chief Complaint Reason For Visit: HYPOKALEMIA History of Present Illness History of Present Illness: Admitted 01/17/24 06:32, this 73 year old /WHITE/F presented to the ER for abnormal behaviors. Patient has pmh of psychiatric illness and is poor historian. RN from [facility] present to provide HPI. Reports that patient has been refusing her medications and refusing to eat dinner over the past 9 days. Has been verbally and physically abusive to staff and other residents at the [facility]. Previously when patient displayed behaviors similar to this she attempted suicide by slitting her wrists and required a psychiatric stay. Branden flores is continuing to refuse her medications at this facility. Potassium in ER was found to be low at 2.6. Admitted to med/surg observation for hypokalemia. 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 (ICD-10) Anxiety F41.9 - Anxiety disorder, unspecified (ICD-10) Acute diarrhea R19.7 - Diarrhea, unspecified (ICD-10) Hydrocephalus G91.9 - Hydrocephalus, unspecified (ICD-10) Glaucoma H40.9 - Unspecified glaucoma (ICD-10) ADD (attention deficit disorder) F98.8 - Other specified behavioral and emotional disorders with onset usually occurring in childhood and adolescence (ICD-10) Chronic renal disease, stage IV N18.4 - Chronic kidney disease, stage 4 (severe) (ICD-10) Acute kidney injury N17.9 - Acute kidney failure, unspecified (ICD-10) Dehydration E86.0 - Dehydration (ICD-10) Forehead laceration S01.81XA - Laceration without foreign body of other part of head, initial encounter (ICD-10) Closed head injury S09.90XA - Unspecified injury of head, initial encounter (ICD-10) Chest pain R07.9 - CHEST PAIN, UNSPECIFIED (ICD-10) Radial head fracture, closed S52.123A - DISP FX OF HEAD OF UNSP RADIUS, INIT FOR CLOS FX (ICD-10) Surgical History History of bilateral knee replacement Z96.653 - Presence of artificial knee joint, bilateral (ICD-10) 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 (ICD-10) H/O tubal ligation Z98.51 - Tubal ligation status (ICD-10) History of abdominoplasty Z98.890 - Other specified postprocedural states (ICD-10) Hx of cholecystectomy Z90.49 - Acquired absence of other specified parts of digestive tract (ICD- 10) Family History FATHER Suicide Mother Hodgkin disease Social History Smoking and tobacco status: Former smoker Substance use type: does not use History of recent travel: No Medications Mecications: Medications at Discharge (Home Meds & RX) metoprolol succinate 100 mg tablet,extended release 24 hr 100 mg PO BID 08/02/13 atorvastatin 10 mg tablet (Lipitor) 40 mg PO BEDTIME 07/23/14 escitalopram oxalate 10 mg tablet (Lexapro) 15 mg PO DAILY 04/12/21 trazodone 50 mg tablet 200 mg PO BEDTIME 04/12/21 potassium chloride 20 mEq tablet,extended release 20 meq PO DAILY #30 tabs 12/09/21 amlodipine 5 mg tablet 5 mg PO DAILY 01/17/24 azelastine 0.05 % eye drops 1 drp ophthalmic (eye) BID 01/17/24 buspirone 10 mg tablet 10 mg PO BID 01/17/24 cholecalciferol (vitamin D3) 25 mcg (1,000 unit) capsule 25 mcg PO DAILY 01/17/24 donepezil 5 mg tablet (Aricept) 5 mg PO DAILY 01/17/24 ferrous sulfate 325 mg (65 mg iron) tablet (Feosol) 325 mg PO DAILY 01/17/24 hydrochlorothiazide 25 mg tablet 25 mg PO DAILY 01/17/24 losartan 50 mg tablet 100 mg PO DAILY 01/17/24 pyridoxine (vitamin B6) 100 mg tablet 100 mg PO DAILY 01/17/24 quetiapine 150 mg tablet,extended release 24 hr 150 mg PO BEDTIME 01/17/24 Allergies Allergies Allergy/AdvReac Type Severity Reaction Status Date / Time Penicillins AdvReac Verified 01/16/24 20:05 Sulfa (Sulfonamide AdvReac Verified 01/16/24 20:05 Antibiotics) Review of Systems Constitutional: Reports No symptoms Head: Reports Normocephalic Eyes: Reports No symptoms Ears: Reports No symptoms Nose: Reports No symptoms Mouth: Reports No symptoms Throat: Reports No symptoms Cardiovascular: Reports No symptoms Respiratory: Reports No symptoms Gastrointestinal: Reports No symptoms Genitourinary: Reports No Symptoms Musculoskeletal: Reports No symptoms Endocrine: Reports No symptoms Hematology: Reports No symptoms Immunology: Reports No symptoms Psychiatric: Reports Other (agitation, aggressive behaviors) Physical Examination Appearance: Positive No Apparent Distress and Ill-Appearing Head: Positive Normocephalic Neck: Positive Supple Heart: Positive RRR Respiratory: Positive Airway patent, Breath Sounds Clear, Bilaterally and Breath Sounds Equal GI/: Positive Soft, Nontender and Bowel sounds normal Extremities: Positive Pedal Pulses Palpable Bilaterally Neurological: Positive Sensation Intact, Motor Intact, Alert and Oriented (person and place) Psychiatric: Positive Anxious Vital Signs (Last 4 Hours) Vital Signs Last 4 Hours: Vital Signs: Last 4 Hours 01/17/24 07:00 01/17/24 07:29 01/17/24 07:38 Temperature 98 F Temperature Source Oral Pulse Rate 76 68 Pulse Rate [Apical] Respiratory Rate 18 18 Blood Pressure 116/73 Blood Pressure Left Arm 141/84 Blood Pressure Position Supine O2 Sat by Pulse Oximetry 97 95 Oxygen Delivery Method Room Air Height 5 ft 4 in Weight 66.5 kg Telemetry Type Remote Telemetry Telemetry Monitoring Started Telemetry Heart Rate 76 EKG WI Interval 0.18 EKG QRS Interval 0.07 Telemetry Strip Reading SR with PVC 01/17/24 07:38 Temperature Temperature Source Pulse Rate Pulse Rate [Apical] 70 Respiratory Rate 18 Blood Pressure Blood Pressure Left Arm Blood Pressure Position O2 Sat by Pulse Oximetry Oxygen Delivery Method Room Air Height Weight Telemetry Type Telemetry Monitoring Telemetry Heart Rate EKG WI Interval EKG QRS Interval Telemetry Strip Reading Labs This Visit Labs This Visit: Labs This Visit 01/16/24 01/16/24 01/16/24 21:35 21:50 23:40 WBC 12.20 H RBC 4.70 Hgb 13.9 Hct 40.7 MCV 86.6 MCH 29.6 MCHC 34.2 RDW Coeff of Jose 12.0 Plt Count 273 Immature Gran % (Auto) 0.2 Neut % (Auto) 76.1 H Lymph % (Auto) 13.5 [place] % (Auto) 9.3 Eos % (Auto) 0.7 Baso % (Auto) 0.2 Neut # (Auto) 9.3 H Lymph # (Auto) 1.7 [place] # (Auto) 1.1 Eos # (Auto) 0.1 Baso # (Auto) 0.0 Immature Gran # (Auto) 0.0 Sodium 131.9 L Potassium 2.65 L* Chloride 97.3 L Carbon Dioxide 25.1 Anion Gap 12.15 BUN 22.8 H Creatinine 0.89 Estimated GFR (MDRD) 62.00 BUN/Creatinine Ratio 25.61 Glucose 132.6 H Calcium 9.79 Magnesium Total Bilirubin 0.67 AST 26.5 ALT 24.8 Alkaline Phosphatase 142.7 H Total Protein 7.02 Albumin 4.32 Globulin 2.70 Albumin/Globulin Ratio 1.60 TSH 0.447 L Urine Color Yellow Urine Clarity Clear Urine pH 6.0 Ur Specific [place] 1.010 Urine Protein Negative Urine Glucose (UA) Negative Urine Ketones Negative Urine Blood Trace-intact H Urine Nitrite Negative Urine Bilirubin Negative Urine Urobilinogen 0.2 Ur Leukocyte Esterase 2+ H Urine Microscopic RBC 0-2 Urine Microscopic WBC 5-10 Ur Squamous Epith Cells Not present Ur Transition Epith Cell 0-2 Salicylate Level mg/dL < 1.00 Urine Opiates Screen Negative Ur Oxycodone Screen Negative Urine Methadone Screen Negative Acetaminophen < 10.0 L Ur Barbiturates Screen Negative U Tricyclic Antidepress Positive H Ur Phencyclidine Scrn Negative Ur Amphetamine Screen Negative U Methamphetamines Scrn Negative U Benzodiazepines Scrn Negative Urine Cocaine Screen Negative U Cannabinoids Screen Negative Plasma/Serum Alcohol < 10.0 SARS CoV-2 RNA Rapid ADONAY Negative 01/17/24 07:06 WBC 8.94 RBC 4.30 Hgb 12.6 Hct 37.5 MCV 87.2 MCH 29.3 MCHC 33.6 RDW Coeff of Jose 12.4 Plt Count 245 Immature Gran % (Auto) 0.3 Neut % (Auto) 69.5 Lymph % (Auto) 17.0 [place] % (Auto) 11.6 H Eos % (Auto) 1.3 Baso % (Auto) 0.3 Neut # (Auto) 6.2 Lymph # (Auto) 1.5 [place] # (Auto) 1.0 Eos # (Auto) 0.1 Baso # (Auto) 0.0 Immature Gran # (Auto) 0.0 Sodium 135.2 Potassium 3.36 L Chloride 100.9 Carbon Dioxide 28.1 Anion Gap 9.56 BUN 20.1 H Creatinine 0.82 Estimated GFR (MDRD) 69.00 BUN/Creatinine Ratio 24.51 Glucose 110.8 H Calcium 9.36 Magnesium 2.15 Total Bilirubin 0.56 AST 27.4 ALT 21.6 Alkaline Phosphatase 120.1 Total Protein 6.28 L Albumin 3.66 Globulin 2.62 Albumin/Globulin Ratio 1.39 TSH Urine Color Urine Clarity Urine pH Ur Specific [place] Urine Protein Urine Glucose (UA) Urine Ketones Urine Blood Urine Nitrite Urine Bilirubin Urine Urobilinogen Ur Leukocyte Esterase Urine Microscopic RBC Urine Microscopic WBC Ur Squamous Epith Cells Ur Transition Epith Cell Salicylate Level mg/dL Urine Opiates Screen Ur Oxycodone Screen Urine Methadone Screen Acetaminophen Ur Barbiturates Screen U Tricyclic Antidepress Ur Phencyclidine Scrn Ur Amphetamine Screen U Methamphetamines Scrn U Benzodiazepines Scrn Urine Cocaine Screen U Cannabinoids Screen Plasma/Serum Alcohol SARS CoV-2 RNA Rapid ADONAY Imaging Imaging: None Review Review Statement: I have independently reviewed and interpreted the labs/EKGs/imaging that were ordered by the ER provider. I have reviewed all outside records that are available currently in our EMR including imaging/notes/labs from previous visits. Plan Reccomendations/Plan: 1. Severe Hypokalemia - Resolved, potassium 3.36 this am, additional replacement given. No EKG changes or symptoms present. 2. Hyponatremia - Resolved, given IV fluids in ER 3. Aggressive Behaviors - crisis counselor present working on placement, restart home medications Patient is medically stable for psychiatric admission. Additional Planning: Case discussed with ED Physician, Dr. Meehan. DVT Prophylaxis: Ambulation Disposition: Discharge to psychiatric facility Admit to: Med/surg Observation Discussed Plan of Care with Dr. Carver. If patient discharged with Left Ventricular Systolic Dysfunction: NA Discharged with a beta maynor? [] If no, why not? [] Discharged with an dahlia/arb? [] If no, why not? [] Review With Patient Reviewed with Patient and Family: Patient and family have been counseled on condition and care plan and have no immediate questions. I have personally discussed and reviewed the patient's visit/current labs/imaging/decision making with Dr. Tootie Carver, my supervising attending. Total number of minutes spent with patient 85 min. More than 50% of the time spent with this patient was devoted to counseling and coordination of care. Time of Admission:01/17/24 06:32 Time of Discharge: Discharge Plan Discharge Discharge Orders: Discharge Patient (ONCE); Ordered 01/17/24 Ordered By: DIVINA ALEJANDRE Activity Restrictions/Additional Instructions: Diagnosis: Hypokalemia Diet: Cardiac Activity: as tolerated Follow-up with PCP next week Medications: potassium 20 mEq twice a day Patient Disposition: TSF TO PSYCH HOSP/UNIT Did you review [place] CATH [facility] RADIOLOGICAL TECHNOLOGIST for ALL controlled substances?: No Discussed opioids are addictive and Narcan is available by prescription or from pharmacy.: No Condition: Fair
[2024-01-17] MEDS: PYRIDOXINE HCL PO SCH (12:10)
[2024-01-17] MEDS: VITAMIN D PO SCH (12:12)
[2024-01-17] MEDS: NORVASC PO SCH (12:12)
[2024-01-17] MEDS: LEXAPRO PO SCH (12:12)
[2024-01-17] MEDS: BUSPAR PO SCH (12:14)
[2024-01-17] MEDS: FERROUS SULFATE PO SCH (12:15)
[2024-01-17] MEDS: ARICEPT PO SCH (12:15)
[2024-01-17] MEDS: TOPROL XL PO SCH (12:16)
[2024-01-17] MEDS: HYDROCHLOROTHIAZIDE PO SCH (12:17)
[2024-01-17] MEDS: COZAAR PO SCH (12:18)
[2024-01-17] MEDS: K-DUR PO ONE (12:20)
[2024-01-17] MEDS: MIRALAX PO SCH (13:03)
[2024-01-17] MEDS: NON-FORMULARY MEDICATION (Azelastine 0.05 % drops) EACHEYE SCH (13:11)
[2024-01-17] MEDS: K-DUR ONE (13:11)
--- NOTE | 2024-01-17 14:49 | PCM ---
Date of Service Date Seen by Provider: 01/17/24 Time Seen by Provider: 08:15 Admit Day/Time Admission Date: 01/17/24 Admission Time: 06:15 Reason for Admission Chief Complaint: HYPOKALEMIA Hospital Provider Hospital Provider: GABO MATHEW, [facility] [place] Primary Care Physician Primary Care Physician: ANNELISE DARBY History of Present Illness History of Present Illness: Admitted 01/17/24 06:32, this 73 year old /WHITE/F presented to the ER for abnormal behaviors. Patient has pmh of psychiatric illness and is poor historian. RN from assisted living present to provide HPI. Reports that patient has been refusing her medications and refusing to eat dinner over the past 9 days. Has been verbally and physically abusive to staff and other residents at the [facility]. Previously when patient displayed behaviors similar to this she attempted suicide by slitting her wrists and required a psychiatric stay. Patient is continuing to refuse her medications at this facility. Potassium in ER was found to be low at 2.6. Admitted to med/surg observation for hypokalemia. Case Discussed With Case Discussed With: Patient's case was discussed with the ER Physicians, Dr. Meehan. 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) Anxiety F41.9 - Anxiety disorder, unspecified (ICD-10) Acute diarrhea R19.7 - Diarrhea, unspecified (ICD-10) Hydrocephalus G91.9 - Hydrocephalus, unspecified (ICD-10) Glaucoma H40.9 - Unspecified glaucoma (ICD-10) ADD (attention deficit disorder) F98.8 - Other specified behavioral and emotional disorders with onset usually occurring in childhood and adolescence (ICD-10) Chronic renal disease, stage IV N18.4 - Chronic kidney disease, stage 4 (severe) (ICD-10) Acute kidney injury N17.9 - Acute kidney failure, unspecified (ICD-10) Dehydration E86.0 - Dehydration (ICD-10) Forehead laceration S01.81XA - Laceration without foreign body of other part of head, initial encounter (ICD-10) Closed head injury S09.90XA - Unspecified injury of head, initial encounter (ICD-10) Chest pain R07.9 - CHEST PAIN, UNSPECIFIED (ICD-10) Radial head fracture, closed S52.123A - DISP FX OF HEAD OF UNSP RADIUS, INIT FOR CLOS FX (ICD-10) Surgical History History of bilateral knee replacement Z96.653 - Presence of artificial knee joint, bilateral (ICD-10) 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 (ICD-10) H/O tubal ligation Z98.51 - Tubal ligation status (ICD-10) History of abdominoplasty Z98.890 - Other specified postprocedural states (ICD-10) Hx of cholecystectomy Z90.49 - Acquired absence of other specified parts of digestive tract (ICD- 10) Family History FATHER Suicide Mother Hodgkin disease Social History Smoking and tobacco status: Former smoker Substance use type: does not use History of recent travel: No Allergies Allergies Allergy/AdvReac Type Severity Reaction Status Date / Time Penicillins AdvReac Verified 01/16/24 20:05 Sulfa (Sulfonamide AdvReac Verified 01/16/24 20:05 Antibiotics) Current Medications Home Medications metoprolol succinate 100 mg tablet,extended release 24 hr 100 mg PO BID 08/02/13 [History Confirmed 01/17/24 Last Taken 08/10/15] atorvastatin 10 mg tablet (Lipitor) 40 mg PO BEDTIME 07/23/14 [History Confirmed 01/17/24 Last Taken 08/10/15] escitalopram oxalate 10 mg tablet (Lexapro) 15 mg PO DAILY 04/12/21 [History Confirmed 01/17/24 Last Taken Unknown] trazodone 50 mg tablet 200 mg PO BEDTIME 04/12/21 [History Confirmed 01/17/24 Last Taken Unknown] amlodipine 5 mg tablet 5 mg PO DAILY 01/17/24 [History Confirmed 01/17/24 Last Taken Unknown] azelastine 0.05 % eye drops 1 drp ophthalmic (eye) BID 01/17/24 [History Confirmed 01/17/24 Last Taken Unknown] buspirone 10 mg tablet 10 mg PO BID 01/17/24 [History Confirmed 01/17/24 Last Taken Unknown] cholecalciferol (vitamin D3) 25 mcg (1,000 unit) capsule 25 mcg PO DAILY 01/17/24 [History Confirmed 01/17/24 Last Taken Unknown] donepezil 5 mg tablet (Aricept) 5 mg PO DAILY 01/17/24 [History Confirmed 01/17/24 Last Taken Unknown] ferrous sulfate 325 mg (65 mg iron) tablet (Feosol) 325 mg PO DAILY 01/17/24 [History Confirmed 01/17/24 Last Taken Unknown] hydrochlorothiazide 25 mg tablet 25 mg PO DAILY 01/17/24 [History Confirmed 01/17/24 Last Taken Unknown] losartan 50 mg tablet 100 mg PO DAILY 01/17/24 [History Confirmed 01/17/24 Last Taken Unknown] potassium chloride 20 mEq tablet,extended release 20 meq PO BID #30 tabs 01/17/24 [Rx Confirmed 01/17/24 Last Taken Unknown] pyridoxine (vitamin B6) 100 mg tablet 100 mg PO DAILY 01/17/24 [History Confirmed 01/17/24 Last Taken Unknown] quetiapine 150 mg tablet,extended release 24 hr 150 mg PO BEDTIME 01/17/24 [History Confirmed 01/17/24 Last Taken Unknown] Home Acetaminophen (Acetaminophen 325 Mg Tablet) 650 mg PO Q4H PRN PRN Reason: Mild Pain Amlodipine Besylate (Amlodipine Besylate 5 Mg Tablet) 5 mg PO DAILY [facility] Last Admin: 01/17/24 12:12 Dose: 5 mg Buspirone HCl (Buspirone Hcl 10 Mg Tablet) 10 mg PO BID [facility] Last Admin: 01/17/24 12:14 Dose: 10 mg Cholecalciferol (Cholecalciferol (Vitamin D3) 1,000 Unit (25 Mcg) Tablet) 1,000 unit PO DAILY [facility] Last Admin: 01/17/24 12:12 Dose: 1,000 unit Donepezil HCl (Donepezil Hcl 10 Mg Tablet) 5 mg PO DAILY [facility] Last Admin: 01/17/24 12:15 Dose: 5 mg Escitalopram Oxalate (Escitalopram Oxalate 10 Mg Tablet) 15 mg PO DAILY [facility] Last Admin: 01/17/24 12:12 Dose: 15 mg Ferrous Sulfate (Ferrous Sulfate 324 Mg Tablet.Dr) 324 mg PO DAILY [facility] Last Admin: 01/17/24 12:15 Dose: 324 mg Hydrochlorothiazide (Hydrochlorothiazide 25 Mg Tablet) 25 mg PO DAILY [facility] Last Admin: 01/17/24 12:17 Dose: 25 mg Losartan Potassium (Losartan Potassium 25 Mg Tablet) 100 mg PO DAILY [facility] Last Admin: 01/17/24 12:18 Dose: 100 mg Metoprolol Succinate (Metoprolol Succinate 50 Mg Tab.Er.24h) 100 mg PO BID [facility] Last Admin: 01/17/24 12:16 Dose: 100 mg Non-Formulary Medication (Azelastine) 1 drop EACHEYE BID [facility] Last Admin: 01/17/24 13:11 Dose: Not Given Polyethylene Glycol (Polyethylene Glycol 17 Gm Powd.Pack) 17 gm PO DAILY [facility] Last Admin: 01/17/24 13:03 Dose: 17 gm Pyridoxine HCl (Vitamin B-6 50 Mg Tablet) 100 mg PO DAILY [facility] Last Admin: 01/17/24 12:10 Dose: 100 mg Discontinued Medications Potassium Chloride/Sodium Chloride (Sodium Chloride 0.9%-Kcl 40meq) 1,000 mls @ 250 mls/hr IV .Q4H ONE Stop: 01/17/24 10:06 Last Admin: 01/17/24 07:13 Dose: 250 mls/hr Magnesium Oxide (Magnesium Oxide 400 Mg Tablet) 800 mg PO ONCE STA Stop: 01/16/24 22:09 Last Admin: 01/16/24 22:39 Dose: 800 mg Potassium Chloride (Potassium Chloride 20 Meq Tab) 40 meq PO ONCE ONE Stop: 01/16/24 22:28 Last Admin: 01/16/24 22:39 Dose: 40 meq Potassium Chloride (Potassium Chloride 20 Meq Tab) 40 meq PO ONCE ONE Stop: 01/17/24 09:29 Last Admin: 01/17/24 12:20 Dose: 40 meq Opioid Naive vs. Tolerant Does Patient Take Opioids?: No Is Patient Opioid Naive?: Yes What is Opioid Naive?: *Opioid Naive implies the patient is not already taking opioids or not chronically receiving opioids on a daily basis. *PRN dosing is not "usually" associated with tolerance. *Patients are at higher risk of over-sedation and aspiration. Is Patient Opioid Tolerant?: No What is Opioid Tolerant?: *Opioid Tolerance implies less than the expected response to an opioid. *Acquired tolerance is defined by the patient taking 60mg of oral morphine daily (or equianalgesic dose of another opioid) for 1 week or more. *Often associated with chronic pain. *May take more than usual dose to achieve desired pain control. Review of Systems Constitutional: Reports No symptoms Head: Reports Normocephalic Eyes: Reports No symptoms Ears: Reports No symptoms Nose: Reports No symptoms Mouth: Reports No symptoms Throat: Reports No symptoms Cardiovascular: Reports No symptoms Respiratory: Reports No symptoms Gastrointestinal: Reports No symptoms Genitourinary: Reports No Symptoms Musculoskeletal: Reports No symptoms Endocrine: Reports No symptoms Hematology: Reports No symptoms Immunology: Reports No symptoms Neurological: Reports No symptoms Psychiatric: Reports Other (agitation, verbally and physically abuse to staff) Physical examination Most Recent Vital Signs: Most Recent Vital Signs Temperature 98.7 F 01/17/24 10:00 Temperature Source Temporal Artery Scan 01/17/24 10:00 Temperature Source Infrared 01/16/24 19:50 Pulse Rate 90 01/17/24 10:00 Respiratory Rate 17 01/17/24 10:00 Blood Pressure 124/78 01/17/24 10:00 Blood Pressure Mean 93 01/17/24 10:00 Blood Pressure Left Arm 141/84 01/17/24 07:38 Blood Pressure Location Left Arm 01/17/24 10:00 Blood Pressure Position Supine 01/17/24 10:00 O2 Sat by Pulse Oximetry 96 01/17/24 10:00 Oxygen Delivery Method Room Air 01/17/24 11:00 Height 5 ft 4 in 01/17/24 07:38 Weight 66.5 kg 01/17/24 07:38 Telemetry Type Remote Telemetry 01/17/24 07:00 Telemetry Monitoring Started 01/17/24 07:00 Telemetry Heart Rate 76 01/17/24 07:00 EKG AR Interval 0.18 01/17/24 07:00 EKG QRS Interval 0.07 01/17/24 07:00 Telemetry Strip Reading SR with PVC 01/17/24 07:00 Appearance: Positive No Apparent Distress and Alert and Oriented x3 Skin: Positive Warm HEENT: Positive Normocephalic and PERRLA Neck: Positive Supple and Midline Trachea Chest/Lungs: Positive Symmetrical With Equal Breath Sounds, Clear to Auscultation Bilaterally and Good Air Movement all 4 Lung [place] Heart: Positive RRR and Pulses Normal GI/: Positive Soft, Nontender and Bowel Sounds Normal Musculoskeletal: Positive Not Examined Extremities: Positive Intact Peripheral Pulses, Stable Joints Without Laxity and Good ROM in All Joints Neurological: Positive Sensation Intact, Motor intact, Alert and Oriented (to person and place, not time and situation, confused, repeating questions) Psychiatric: Positive Other (anxious) Labs This Visit Labs This Visit: Labs This Visit 01/16/24 01/16/24 01/16/24 21:35 21:50 23:40 WBC 12.20 H RBC 4.70 Hgb 13.9 Hct 40.7 MCV 86.6 MCH 29.6 MCHC 34.2 RDW Coeff of Jose 12.0 Plt Count 273 Immature Gran % (Auto) 0.2 Neut % (Auto) 76.1 H Lymph % (Auto) 13.5 Hinds % (Auto) 9.3 Eos % (Auto) 0.7 Baso % (Auto) 0.2 Neut # (Auto) 9.3 H Lymph # (Auto) 1.7 Hinds # (Auto) 1.1 Eos # (Auto) 0.1 Baso # (Auto) 0.0 Immature Gran # (Auto) 0.0 Sodium 131.9 L Potassium 2.65 L* Chloride 97.3 L Carbon Dioxide 25.1 Anion Gap 12.15 BUN 22.8 H Creatinine 0.89 Estimated GFR (MDRD) 62.00 BUN/Creatinine Ratio 25.61 Glucose 132.6 H Calcium 9.79 Magnesium Total Bilirubin 0.67 AST 26.5 ALT 24.8 Alkaline Phosphatase 142.7 H Total Protein 7.02 Albumin 4.32 Globulin 2.70 Albumin/Globulin Ratio 1.60 TSH 0.447 L Urine Color Yellow Urine Clarity Clear Urine pH 6.0 Ur Specific [place] 1.010 Urine Protein Negative Urine Glucose (UA) Negative Urine Ketones Negative Urine Blood Trace-intact H Urine Nitrite Negative Urine Bilirubin Negative Urine Urobilinogen 0.2 Ur Leukocyte Esterase 2+ H Urine Microscopic RBC 0-2 Urine Microscopic WBC 5-10 Ur Squamous Epith Cells Not present Ur Transition Epith Cell 0-2 Salicylate Level mg/dL < 1.00 Urine Opiates Screen Negative Ur Oxycodone Screen Negative Urine Methadone Screen Negative Acetaminophen < 10.0 L Ur Barbiturates Screen Negative U Tricyclic Antidepress Positive H Ur Phencyclidine Scrn Negative Ur Amphetamine Screen Negative U Methamphetamines Scrn Negative U Benzodiazepines Scrn Negative Urine Cocaine Screen Negative U Cannabinoids Screen Negative Plasma/Serum Alcohol < 10.0 SARS CoV-2 RNA Rapid ADONAY Negative 01/17/24 07:06 WBC 8.94 RBC 4.30 Hgb 12.6 Hct 37.5 MCV 87.2 MCH 29.3 MCHC 33.6 RDW Coeff of Jose 12.4 Plt Count 245 Immature Gran % (Auto) 0.3 Neut % (Auto) 69.5 Lymph % (Auto) 17.0 Hinds % (Auto) 11.6 H Eos % (Auto) 1.3 Baso % (Auto) 0.3 Neut # (Auto) 6.2 Lymph # (Auto) 1.5 Hinds # (Auto) 1.0 Eos # (Auto) 0.1 Baso # (Auto) 0.0 Immature Gran # (Auto) 0.0 Sodium 135.2 Potassium 3.36 L Chloride 100.9 Carbon Dioxide 28.1 Anion Gap 9.56 BUN 20.1 H Creatinine 0.82 Estimated GFR (MDRD) 69.00 BUN/Creatinine Ratio 24.51 Glucose 110.8 H Calcium 9.36 Magnesium 2.15 Total Bilirubin 0.56 AST 27.4 ALT 21.6 Alkaline Phosphatase 120.1 Total Protein 6.28 L Albumin 3.66 Globulin 2.62 Albumin/Globulin Ratio 1.39 TSH Urine Color Urine Clarity Urine pH Ur Specific [place] Urine Protein Urine Glucose (UA) Urine Ketones Urine Blood Urine Nitrite Urine Bilirubin Urine Urobilinogen Ur Leukocyte Esterase Urine Microscopic RBC Urine Microscopic WBC Ur Squamous Epith Cells Ur Transition Epith Cell Salicylate Level mg/dL Urine Opiates Screen Ur Oxycodone Screen Urine Methadone Screen Acetaminophen Ur Barbiturates Screen U Tricyclic Antidepress Ur Phencyclidine Scrn Ur Amphetamine Screen U Methamphetamines Scrn U Benzodiazepines Scrn Urine Cocaine Screen U Cannabinoids Screen Plasma/Serum Alcohol SARS CoV-2 RNA Rapid ADONAY Microbiology This Visit 01/16/24 23:40 Urine,Random Urine Culture - Preliminary Review Statement Review Statement: I have independently reviewed and interpreted the labs/EKGs/imaging that were ordered by the ER provider. I have reviewed all outside records that are available currently in our EMR including imaging/notes/labs from previous visits. Plan Plan: 1. Severe Hypokalemia - Resolved, potassium 3.36 this am, additional replacement given. No EKG changes or symptoms present. 2. Hyponatremia - Resolved, given IV fluids in ER 3. Aggressive Behaviors - crisis counselor present working on placement, restart home medications 4. Hypertension - chronic, continue home medications 5. Hyperlipidemia - chronic, continue home medications Patient is medically stable for psychiatric admission. DVT Prophylaxis: Ambulation. Time Spent: Greater than 80 minutes spent with patient, 50% of the time spent with this patient was devoted to counseling and coordination of care. Advanced Care Plannin minutes spent discussing advance care planning. Disposition: Admit to: Med/Surg Observation Full Code Discussed Plan of Care with Dr. Carver. Medications Medication Orders: Medications Ordered Category Date Time Status Acetaminophen [Tylenol] Meds 01/17/24 06:54 Active 650 mg PO Q4H PRN Amlodipine Besylate [Norvasc] Meds 01/17/24 09:25 Active 5 mg PO DAILY Buspirone HCl [Buspar] Meds 01/17/24 09:30 Active 10 mg PO BID Cholecalciferol (Vitamin D3) [Vitamin D] Meds 01/17/24 09:25 Active 1,000 unit PO DAILY Donepezil HCl [Aricept] Meds 01/17/24 09:25 Active 5 mg PO DAILY Escitalopram Oxalate [Lexapro] Meds 01/17/24 09:25 Active 15 mg PO DAILY Ferrous Sulfate Meds 01/17/24 09:25 Active 324 mg PO DAILY Hydrochlorothiazide Meds 01/17/24 09:25 Active 25 mg PO DAILY Losartan Potassium [Cozaar] Meds 01/17/24 09:25 Active 100 mg PO DAILY Metoprolol Succinate [Toprol Xl] Meds 01/17/24 09:25 Active 100 mg PO BID Polyethylene Glycol 3350 [Miralax] Meds 01/17/24 12:30 Active 17 gm PO DAILY Vitamin B-6 [Pyridoxine HCl] Meds 01/17/24 09:25 Active 100 mg PO DAILY azelastine Meds 01/17/24 09:30 Active 1 drop EACHEYE BID
--- NOTE | 2024-01-17 20:06 | DCSUM ---
Admission Date Admission Date: 01/17/24 Discharge Date Discharge Date: 01/18/24 Admission Diagnosis Admission Diagnosis: 1. Severe Hypokalemia 2. Hyponatremia 3. Aggressive Behaviors 4. Hypertension 5. Hyperlipidemia Discharge Diagnosis Discharge Diagnosis: 1. Severe Hypokalemia - Resolved 2. Hyponatremia - Resolved 3. Aggressive Behaviors - Transferring to psychiatric facility 4. Hypertension - chronic, stable 5. Hyperlipidemia - chronic, stable Hospital Provider Hospital Provider: GABO MATHEW, [facility] [place] Primary Care Physician Primary Care Physician: ANNELISE DARBY Summary of History and Physical Summary of History and Physical: 73 year old /WHITE/F presented to the ER for abnormal behaviors. Patient has pmh of psychiatric illness and is poor historian. RN from [facility] present to provide HPI. Reports that patient has been refusing her medications and refusing to eat dinner over the past 9 days. Has been verbally and physically abusive to staff and other residents at the [facility]. Previously when patient displayed behaviors similar to this she attempted suicide by slitting her wrists and required a psychiatric stay. Patient is continuing to refuse her medications at this facility. Potassium in ER was found to be low at 2.6. Admitted to med/surg observation for hypokalemia. Hospital Course Subjective: During stay, patient has been oriented to person and place. Not time and situation. Repeats the same questions, becomes agitated and anxious at times. Potassium corrected with replacement as well as sodium. No other medical problems noted. Medically cleared for psychiatric admission as of 01/17/24. Appearance: Pleasant, No Apparent Distress and Alert HEENT: MMM, Supple and No JVD CVS: No Murmur Abdomen: Soft, Non-Tender and No Distention Respiratory: No Dyspnea Extremities: No Edema Vital Signs: Most Recent Vital Signs Temperature 97.7 F 01/17/24 18:00 Temperature Source Temporal Artery Scan 01/17/24 18:00 Temperature Source Infrared 01/16/24 19:50 Pulse Rate 84 01/17/24 18:00 Respiratory Rate 16 01/17/24 18:00 Blood Pressure 141/79 H 01/17/24 18:00 Blood Pressure Mean 99 01/17/24 18:00 Blood Pressure Left Arm 141/84 01/17/24 07:38 Blood Pressure Location Right Arm 01/17/24 18:00 Blood Pressure Position Sitting 01/17/24 18:00 O2 Sat by Pulse Oximetry 94 L 01/17/24 18:00 Oxygen Delivery Method Room Air 01/17/24 18:58 Height 5 ft 4 in 01/17/24 07:38 Weight 66.5 kg 01/17/24 07:38 Telemetry Type Remote Telemetry 01/17/24 19:00 Telemetry Monitoring Continues 01/17/24 19:00 Telemetry Heart Rate 73 01/17/24 19:00 EKG SD Interval 0.17 01/17/24 19:00 EKG QRS Interval 0.09 01/17/24 19:00 Telemetry Strip Reading Sinus Rhythm 01/17/24 19:00 Lab Results Last 24 Hours: 01/17/24 01/16/24 01/16/24 07:06 23:40 21:50 WBC 8.94 12.20 H RBC 4.30 4.70 Hgb 12.6 13.9 Hct 37.5 40.7 MCV 87.2 86.6 MCH 29.3 29.6 MCHC 33.6 34.2 RDW Coeff of Jose 12.4 12.0 Plt Count 245 273 Immature Gran % (Auto) 0.3 0.2 Neut % (Auto) 69.5 76.1 H Lymph % (Auto) 17.0 13.5 Amelia % (Auto) 11.6 H 9.3 Eos % (Auto) 1.3 0.7 Baso % (Auto) 0.3 0.2 Neut # (Auto) 6.2 9.3 H Lymph # (Auto) 1.5 1.7 Amelia # (Auto) 1.0 1.1 Eos # (Auto) 0.1 0.1 Baso # (Auto) 0.0 0.0 Immature Gran # (Auto) 0.0 0.0 Sodium 135.2 131.9 L Potassium 3.36 L 2.65 L* Chloride 100.9 97.3 L Carbon Dioxide 28.1 25.1 Anion Gap 9.56 12.15 BUN 20.1 H 22.8 H Creatinine 0.82 0.89 Estimated GFR (MDRD) 69.00 62.00 BUN/Creatinine Ratio 24.51 25.61 Glucose 110.8 H 132.6 H Calcium 9.36 9.79 Magnesium 2.15 Total Bilirubin 0.56 0.67 AST 27.4 26.5 ALT 21.6 24.8 Alkaline Phosphatase 120.1 142.7 H Total Protein 6.28 L 7.02 Albumin 3.66 4.32 Globulin 2.62 2.70 Albumin/Globulin Ratio 1.39 1.60 TSH 0.447 L Urine Color Yellow Urine Clarity Clear Urine pH 6.0 Ur Specific [place] 1.010 Urine Protein Negative Urine Glucose (UA) Negative Urine Ketones Negative Urine Blood Trace-intact H Urine Nitrite Negative Urine Bilirubin Negative Urine Urobilinogen 0.2 Ur Leukocyte Esterase 2+ H Urine Microscopic RBC 0-2 Urine Microscopic WBC 5-10 Ur Squamous Epith Cells Not present Ur Transition Epith Cell 0-2 Salicylate Level mg/dL < 1.00 Urine Opiates Screen Negative Ur Oxycodone Screen Negative Urine Methadone Screen Negative Acetaminophen < 10.0 L Ur Barbiturates Screen Negative U Tricyclic Antidepress Positive H Ur Phencyclidine Scrn Negative Ur Amphetamine Screen Negative U Methamphetamines Scrn Negative U Benzodiazepines Scrn Negative Urine Cocaine Screen Negative U Cannabinoids Screen Negative Plasma/Serum Alcohol < 10.0 SARS CoV-2 RNA Rapid ADONAY 01/16/24 21:35 WBC RBC Hgb Hct MCV MCH MCHC RDW Coeff of Jose Plt Count Immature Gran % (Auto) Neut % (Auto) Lymph % (Auto) Amelia % (Auto) Eos % (Auto) Baso % (Auto) Neut # (Auto) Lymph # (Auto) Amelia # (Auto) Eos # (Auto) Baso # (Auto) Immature Gran # (Auto) Sodium Potassium Chloride Carbon Dioxide Anion Gap BUN Creatinine Estimated GFR (MDRD) BUN/Creatinine Ratio Glucose Calcium Magnesium Total Bilirubin AST ALT Alkaline Phosphatase Total Protein Albumin Globulin Albumin/Globulin Ratio TSH Urine Color Urine Clarity Urine pH Ur Specific [place] Urine Protein Urine Glucose (UA) Urine Ketones Urine Blood Urine Nitrite Urine Bilirubin Urine Urobilinogen Ur Leukocyte Esterase Urine Microscopic RBC Urine Microscopic WBC Ur Squamous Epith Cells Ur Transition Epith Cell Salicylate Level mg/dL Urine Opiates Screen Ur Oxycodone Screen Urine Methadone Screen Acetaminophen Ur Barbiturates Screen U Tricyclic Antidepress Ur Phencyclidine Scrn Ur Amphetamine Screen U Methamphetamines Scrn U Benzodiazepines Scrn Urine Cocaine Screen U Cannabinoids Screen Plasma/Serum Alcohol SARS CoV-2 RNA Rapid ADONAY Negative Discharge Instructions Discharge Planning: Discharge Planning > 40 minutes If patient is discharged with left ventricular systolic dysfunction: NA Discharged with a beta maynor? [] If no, why not? [] Discharged with an dahlia/arb? [] If no, why not? [] Diagnosis: Hypokalemia Diet: Cardiac Activity: as tolerated Follow-up with PCP following psychiatric stay discharge. Medications: potassium 20 mEq twice a day Accepting provider: Dr. Castro on [address] at [facility]. Discharge Medications: Medications at Discharge (Home Meds & RX) metoprolol succinate 100 mg tablet,extended release 24 hr 100 mg PO BID 08/02/13 atorvastatin 10 mg tablet (Lipitor) 40 mg PO BEDTIME 07/23/14 escitalopram oxalate 10 mg tablet (Lexapro) 15 mg PO DAILY 04/12/21 trazodone 50 mg tablet 200 mg PO BEDTIME 04/12/21 amlodipine 5 mg tablet 5 mg PO DAILY 01/17/24 azelastine 0.05 % eye drops 1 drp ophthalmic (eye) BID 01/17/24 buspirone 10 mg tablet 10 mg PO BID 01/17/24 cholecalciferol (vitamin D3) 25 mcg (1,000 unit) capsule 25 mcg PO DAILY 01/17/24 donepezil 5 mg tablet (Aricept) 5 mg PO DAILY 01/17/24 ferrous sulfate 325 mg (65 mg iron) tablet (Feosol) 325 mg PO DAILY 01/17/24 hydrochlorothiazide 25 mg tablet 25 mg PO DAILY 01/17/24 losartan 50 mg tablet 100 mg PO DAILY 01/17/24 potassium chloride 20 mEq tablet,extended release 20 meq PO BID #30 tabs 01/17/24 pyridoxine (vitamin B6) 100 mg tablet 100 mg PO DAILY 01/17/24 quetiapine 150 mg tablet,extended release 24 hr 150 mg PO BEDTIME 01/17/24 Discharge Plan Discharge Discharge Orders: Discharge Patient (ONCE); Ordered 01/17/24 Ordered By: DIVINA ALEJANDRE Activity Restrictions/Additional Instructions: Diagnosis: Hypokalemia Diet: Cardiac Activity: as tolerated Follow-up with PCP following psychiatric stay discharge. Medications: potassium 20 mEq twice a day Accepting provider: Dr. Castro on [address] at [facility]. Patient Disposition: TSF TO PSYCH HOSP/UNIT Did you review [place] RETAIL STOCK CLERK for ALL controlled substances?: No Discussed opioids are addictive and Narcan is available by prescription or from pharmacy.: No Condition: Fair
[2024-01-17] MEDS: DESYREL PO SCH (20:21)
[2024-01-17] MEDS: LIPITOR PO SCH (20:41)
[2024-01-17] MEDS: SEROQUEL PO SCH (20:42)
[2024-01-17] MEDS ORDERED: QUETIAPINE 150 MG PO SCH (21:00)
[2024-01-18 05:59] LABS: BASOPHILS # (AUTO) 0.1 K/uL (0-0.2); BASOPHILS % (AUTO) 0.6 % (0.0-3.0); EOSINOPHILS # (AUTO) 0.2 K/ul (0.0-0.7); HEMATOCRIT 35.4 % (37.0-47.0); HEMOGLOBIN 11.8 g/dl (12.0-16.0); IMMATURE GRANULOCYTE % (AUTO) 0.1 % (0.0-5.0); LYMPHOCYTES # (AUTO) 1.8 K/uL (0.60-3.4); LYMPHOCYTES % (AUTO) 20.9 (10.0-50.0); MEAN CORPUSCULAR HEMOGLOBIN 29.9 pg (27.0-31.0); MEAN CORPUSCULAR HGB CONC 33.3 (31.8-35.4); MEAN CORPUSCULAR VOLUME 89.8 fl (81.0-99.0); MONOCYTES # (AUTO) 0.9 K/uL (0.4-2.0); MONOCYTES % (AUTO) 9.8 (0-10); NEUTROPHILS # (AUTO) 5.8 K/ul (2.0-6.9); NEUTROPHILS % (AUTO) 66.6 % (42.2-75.2); PLATELET COUNT 254 10^3/uL (140-440); RDW COEFFICIENT OF VARIATION 12.6 % (11.6-14.8); RED BLOOD COUNT 3.94 10^6/ul (4.20-5.40); WHITE BLOOD COUNT 8.71 K/ul (4.6-10.2)
[2024-01-18 06:03] LABS: ALANINE AMINOTRANSFERASE 19.3 U/L (0-35); ALBUMIN 3.44 g/dL (3.5-5.0); ALKALINE PHOSPHATASE 106.8 U/L (53-141); ASPARTATE AMINO TRANSFERASE 20.1 U/L (14-36); BILIRUBIN,TOTAL 0.19 mg/dL (0.2-1.3); BLOOD UREA NITROGEN 15.2 mg/dL (7-17); CALCIUM 8.8 mg/dL (8.4-10.2); CARBON DIOXIDE 26.4 mmol/L (22-30.0); CHLORIDE 103.2 mmol/L (98-107); CREATININE 0.67 mg/dL (0.60-1.30); GLUCOSE 106.7 mg/dL (74-106); POTASSIUM 3.91 mmol/L (3.5-5.1); SODIUM 134.6 mmol/L (134.5-145); TOTAL PROTEIN 5.96 g/dL (6.3-8.2)
[2024-01-18 09:49] VITALS: BP 132/78; PULSE 68; RESP 20; TEMP 97.2
== END 2024-01-18 10:50 ==
LOC: ED 19:46 → MEDSURG B 19:46
PROVIDERS: ADMIT Hospitalist; ATTEND Nurse Practitioner Family
DX: E78.5 Hyperlipidemia, unspecified; E87.1 Hypo-osmolality and hyponatremia; Z91.199 Patient's noncompliance with other medical treatment and regimen due to unspecified reason; E87.6 Hypokalemia; I10 Essential (primary) hypertension; Z79.899 Other long term (current) drug therapy; Z20.822 Contact with and (suspected) exposure to COVID-19; Z51.81 Encounter for therapeutic drug level monitoring; R45.6 Violent behavior